=== PATIENT | female | born 1930 | race Caucasian/White ===

== ENCOUNTER 2016-05-02 17:45 | Emergency (ER) | payer MEDICARE, MEDICAID ==
[2016-05-02 17:57] VITALS: TEMP 98.1; O2SAT 99
--- NOTE | 2016-05-02 18:45 | CT ---
NAME: ROBERTO CARLOS DE LEÓNPROCEDURE: CT HEAD WITHOUT IV CONTRASTORDER DATE: 05/02/2016 6:02 PM CSTACCESSION NUMBER: [id number] CLINICAL HISTORY: fall INDICATION: Same as above Comparison: 12/26/2014 TECHNIQUE: CT of the head was done without intravenous contrast was done in the orthogonal planes. Total DLP: 773.97 mGy*cm. FINDINGS: There is no intracranial hemorrhage, midline shift mass effect or acute focal infarct. There is prominence of the sylvian fissures and the cortical sulci reflecting age related volume loss. There is periventricular and deep white matter low attenuation, most likely related to small vessel white matter ischemic disease. 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 If clinical concern exists regarding an acute ischemic/vascular pathology being responsible for patient's symptomatology, an MRI of the brain is more sensitive than the current study, in ruling out such a possibility. There is good [place]/white matter differentiation. The ventricular system is normal. The mastoid air cells are unremarkable . The paranasal sinuses are unremarkable . There is no visualization of acute fractures involving the calvarium or the skull base. IMPRESSION: There is no acute intracranial abnormality. Age related and chronic involutional changes are seen. Place of interpretation: [facility]. Electronically signed by: Matt Bryant MD 05/02/2016 6:44 PM DE ICER INSTALLER
--- NOTE | 2016-05-02 18:48 | RAD ---
NAME: ROBERTO CARLOS DE LEÓNPROCEDURE: XR SHOULDER 2 OR MORE VIEWSORDER DATE: 05/02/2016 6:02 PM CSTACCESSION NUMBER: [id number] Clinical History: fall Indication: Status post fall and left shoulder pain Comparison: None . Technique: 2.0 views of the left shoulder were done. Findings: There is no visualization of acute fractures or dislocations involving the bones of the left shoulder joint. Superior subluxation of the left humeral head is suggestive of chronic rotator cuff tendon tear The adjacent acromioclavicular joint shows mild degenerative change. There is no evidence of rotator cuff calcific tendinitis. The visualized adjacent ribs do not show any evidence of acute bony trauma. Limited evaluation of the adjacent clavicle, scapula and the acromioclavicular joint does not show any evidence of acute bony trauma. The visualized lung christopher are radiographically unremarkable. The adjacent soft tissues are radiographically unremarkable. There is no visualization of any radiopaque foreign bodies in the soft tissues. Impression: Negative for acute bony trauma involving the left shoulder joint . Place of interpretation: [id number]. Electronically signed by: Matt Bryant MD 05/02/2016 6:46 PM SYSTEM CONTROLLER
--- NOTE | 2016-05-02 18:51 | RAD ---
EXAM DESCRIPTION: Lumbar Spine 3 Views CLINICAL HISTORY: s/p fall, hit head, pain and small swelling to left ear, also c/o pain to upper back, lower back ,and left shoulder. COMPARISON: None. FINDINGS: AP and lateral view of the lumbar spine, and coned view of the lumbosacral junction were submitted. There is scoliosis and degenerative changes of the lumbar spine. There is atherosclerosis. Decreased bone mineralization compatible with osteopenia. There is anterior spondylosis mainly at L3/L4. Calcifications within the pelvis compatible with phleboliths. There are five true lumbar vertebral bodies. The pedicles are within normal limits. There is no acute fracture or spondylolisthesis. IMPRESSION: No acute abnormalities. Scoliosis and degenerative changes of the lumbar spine. Electronically signed by: Michael Hartman MD 05/02/2016 6:50 PM POWER DISTRIBUTION ENGINEER
--- NOTE | 2016-05-02 18:53 | RAD ---
EXAM DESCRIPTION: Thoracic Spine,AP Lateral CLINICAL HISTORY: s/p fall, hit head, pain and small swelling to left ear, also c/o pain to upper back, lower back ,and left shoulder. COMPARISON: Chest radiograph July 30, 2015 FINDINGS: AP, lateral views of the thoracic spine and swimmer's view were submitted. The pedicles are within normal limits. Vertebral body height is preserved. There is no discrete acute fracture. There is atherosclerosis. Cardiac silhouette is enlarged which could be secondary to cardiomegaly. There is loss of the normal vertebral body height of the T9 and T10 vertebral bodies compatible with compression fractures. This is unchanged compared with the prior chest radiograph dated July 30, 2015 IMPRESSION: Stable examination. No acute abnormalities. Electronically signed by: Michael Hartman MD 05/02/2016 6:52 PM FILAMENT WOUND PARTS FABRICATOR
--- NOTE | 2016-05-02 18:58 | ED.PDOC ---
History of Present Illness - General Chief Complaint: Trauma Stated Complaint: fall Time Seen by Provider: 05/02/16 17:57 Source: patient Exam Limitations: no limitations - History of Present Illness Initial Comments: the patient is an 86-year-old female who [facility] a [facility]. She was getting up to go to the bathroom when she tripped and fell backwards and landed on the floor. She landed primarily on her left side. She has some mild low back pain. She has some mild left posterior shoulder pain. She has some mild thoracic spine pain. No new deformity is noted that she does have significant scoliosis changes. No lacerations. She also has a small hematoma to her posterior occiput. No laceration. No altered mental status. The patient did not lose consciousness. The patient was able to give us her account of the event. She has had multiple falls recently due to progressive weakness due to illnesses. She is supposed to be using a walker and wheelchair to get around. It does not appear that she did at this time. Timing/Duration: momentarily Severity: moderate Improving Factors: immobilization Worsening Factors: movement Associated Symptoms: denies symptoms Allergies/Adverse Reactions: Allergies Codeine Allergy (Verified 02/26/16 06:08) NSAIDs Allergy (Verified 02/26/16 06:08) Penicillin G Allergy (Verified 02/26/16 06:08) Propoxyphene [From Darvon] Allergy (Verified 02/26/16 06:08) Sulfa Drugs Allergy (Verified 02/26/16 06:08) Valsartan [From Diovan] Allergy (Verified 02/26/16 06:08) Home Medications: Ambulatory Orders Calcium Carbonate 260 mg PO DAILY 02/17/15 Citalopram Hydrobromide 20 mg PO DAILY 02/17/15 Furosemide [Lasix] 40 mg PO BID 02/17/15 Gabapentin 300 mg PO TID 02/17/15 Magnesium Oxide 400 mg PO BID 02/17/15 Metoprolol Succinate [Toprol Xl] 50 mg PO DAILY 02/17/15 [place] 3 Fatty Acids-[place] 6 FA [[place]-3 & [place]-6 Fish Oi] 1,000 mg PO DAILY Omeprazole 40 mg PO BID 02/17/15 Oxybutynin Chloride 5 mg PO BEDTIME 02/17/15 Zolpidem Tartrate [Ambien] 5 mg PO BEDTIME 02/17/15 fentaNYL PATCH 25 MCG/HR [Duragesic Patch 25 MCG/HR] 25 mcg TOP Q72H 02/17/15 HYDROcodone 7.5MG/APAP 325MG [[place] 7.5/325] 1 ea PO .Q4H PRN 07/29/15 Insulin NPH Isophane & Reg (Hu [Humulin 70/30 (70-30) 100 Unit/ml] 10 units SC .MORNING 07/29/15 Insulin Regular (Human) [Novolin R] 0 unit IJ DAILY PRN 07/29/15 Benzonatate Perles [Tessalon Perles] 100 mg PO TID #28 cap 07/30/15 Guaifenesin [Mucinex] 600 mg PO BID #14 tab 07/30/15 Sucralfate Tab [Carafate Tab] 1 gm PO QID #120 tab 02/26/16 Review of Systems - Review of Systems Constitutional: States: malaise EENTM: States: no symptoms reported Respiratory: States: no symptoms reported Cardiology: States: no symptoms reported Gastrointestinal/Abdominal: States: no symptoms reported Genitourinary: States: no symptoms reported Musculoskeletal: States: see HPI Skin: States: see HPI Neurological: States: weakness - generalized but not new she does have poor balance and this is not new either All other Systems: No Change from Baseline Past Medical History (General) - Patient Medical History Hx Seizures: No Hx Stroke: No Hx Dementia: No Hx Asthma: No Hx of COPD: No Hx Cardiac Disorders: No Hx Congestive Heart Failure: No Hx Pacemaker: No Hx Hypertension: Yes Hx Thyroid Disease: No Hx Diabetes: Yes Hx Gastroesophageal Reflux: Yes Hx Renal Disease: No Hx Cancer: No Hx of HIV: No Hx Hepatitis C: No Hx MRSA: No MRSA Source:: Wound Surgical History: appendectomy, cholecystectomy - Vaccination History Hx Tetanus, Diphtheria Vaccination: - unknown Hx Influenza Vaccination: Yes Hx Pneumococcal Vaccination: Yes - Social History Hx Tobacco Use: No Hx Chewing Tobacco Use: No Hx Alcohol Use: No Hx Substance Use: No Hx Substance Use Treatment: No Hx Depression: No Hx Physical Abuse: No Hx Emotional Abuse: No Hx Suspected Abuse: No - Activities of Daily Living Care Home/Assisted Living (if applicable):: [facility] - Female History Patient : No Family Medical History - Family History Mother Family History: Unknown Living Status: Hx Family Cancer: Yes - Liver Physical Exam - Physical Exam General Appearance: Alert, Comfortable, No apparent distress Eye Exam: bilateral normal Ears, Nose, Throat: hearing grossly normal, normal ENT inspection, normal pharynx Neck: non-tender, full range of motion, supple, normal inspection Respiratory: chest non-tender, lungs clear, normal breath sounds, no respiratory distress, no accessory muscle use Cardiovascular/Chest: normal peripheral pulses, regular rate, rhythm, no edema Peripheral Pulses: radial,right: 2+, femoral,right: 2+, dorsalis pedis,right: 2+ , dorsalis pedis,left: 2+ Gastrointestinal/Abdominal: normal bowel sounds, non tender, soft Rectal Exam: deferred Back Exam: other - see history of present illness. Extremity: normal range of motion - for her, non-tender, normal inspection - with the exception of chronic changes, no pedal edema, normal capillary refill Neurologic: alert, normal mood/affect, oriented x 3 Skin Exam: normal color Comments: Vital Signs - 24 hr 05/02/16 17:53 Temperature 98.1 F Pulse Rate [ 59 L Left Brachial] Respiratory 20 Rate Blood Pressure 124/64 [Left Arm] O2 Sat by Pulse 99 Oximetry Progress - Progress Progress: 05/02/16 18:59 the patient is an 86-year-old female presenting to the emergency room secondary to a fall [facility]. she has a small contusion to the posterior occiput. She needs to be sure to use her walker or wheelchair to get around prevent further falls. Head CT, x-rays of the lumbar spine and thoracic spine as well as x-rays of the left shoulder show no evidence of fracture or hemorrhage. The patient will likely be sore from the fall for a couple of weeks. Recommend she start working with physical therapy if not doing so already to improve her gait and strength. Fall precautions should be taken. She is to return to the emergency room for any acute worsening. Resume medications at the [facility] otherwise. Departure - Departure Clinical Impression: Contusion of scalp Qualifiers: Encounter type: initial encounter Qualifier Code: (S00.03XA) Contusion of scalp , initial encounter Fall at [facility] Qualifiers: Encounter type: initial encounter Qualifier Code: (W19.XXXA) Unspecified fall, initial encounter Disposition: Discharge to Home or Self Care Condition: Fair Departure Forms: ED Discharge - Pt. Copy, Patient Portal Self Enrollment Instructions: DI for Contusion Diet: regular diet Activity: increase activity as tolerated Referrals: Agus Calero MD [Primary Care Provider] - 1-2 Weeks Home Medications: Ambulatory Orders Calcium Carbonate 260 mg PO DAILY 02/17/15 Citalopram Hydrobromide 20 mg PO DAILY 02/17/15 Furosemide [Lasix] 40 mg PO BID 02/17/15 Gabapentin 300 mg PO TID 02/17/15 Magnesium Oxide 400 mg PO BID 02/17/15 Metoprolol Succinate [Toprol Xl] 50 mg PO DAILY 02/17/15 [place] 3 Fatty Acids-[place] 6 FA [[place]-3 & [place]-6 Fish Oi] 1,000 mg PO DAILY Omeprazole 40 mg PO BID 02/17/15 Oxybutynin Chloride 5 mg PO BEDTIME 02/17/15 Zolpidem Tartrate [Ambien] 5 mg PO BEDTIME 02/17/15 fentaNYL PATCH 25 MCG/HR [Duragesic Patch 25 MCG/HR] 25 mcg TOP Q72H 02/17/15 HYDROcodone 7.5MG/APAP 325MG [[place] 7.5/325] 1 ea PO .Q4H PRN 07/29/15 Insulin NPH Isophane & Reg (Hu [Humulin 70/30 (70-30) 100 Unit/ml] 10 units SC .MORNING 07/29/15 Insulin Regular (Human) [Novolin R] 0 unit IJ DAILY PRN 07/29/15 Benzonatate Perles [Tessalon Perles] 100 mg PO TID #28 cap 07/30/15 Guaifenesin [Mucinex] 600 mg PO BID #14 tab 07/30/15 Sucralfate Tab [Carafate Tab] 1 gm PO QID #120 tab 02/26/16 Additional Instructions: the patient is an 86-year-old female presenting to the emergency room secondary to a fall at the [facility]. she has a small contusion to the posterior occiput. She needs to be sure to use her walker or wheelchair to get around prevent further falls. Head CT, x-rays of the lumbar spine and thoracic spine as well as x-rays of the left shoulder show no evidence of fracture or hemorrhage. The patient will likely be sore from the fall for a couple of weeks. Recommend she start working with physical therapy if not doing so already to improve her gait and strength. Fall precautions should be taken. She is to return to the emergency room for any acute worsening. Resume medications at the [facility] otherwise.
[2016-05-02 19:24] VITALS: BP 121/71
--- NOTE | 2016-05-28 23:49 | RAD ---
NAME: ROBERTO CARLOS DE LEÓNPROCEDURE: XR SHOULDER 2 OR MORE VIEWSORDER DATE: 05/02/2016 6:02 PM CSTACCESSION NUMBER: [id number] Clinical History: fall Indication: Status post fall and left shoulder pain Comparison: None . Technique: 2.0 views of the left shoulder were done. Findings: There is no visualization of acute fractures or dislocations involving the bones of the left shoulder joint. Superior subluxation of the left humeral head is suggestive of chronic rotator cuff tendon tear The adjacent acromioclavicular joint shows mild degenerative change. There is no evidence of rotator cuff calcific tendinitis. The visualized adjacent ribs do not show any evidence of acute bony trauma. Limited evaluation of the adjacent clavicle, scapula and the acromioclavicular joint does not show any evidence of acute bony trauma. The visualized lung christopher are radiographically unremarkable. The adjacent soft tissues are radiographically unremarkable. There is no visualization of any radiopaque foreign bodies in the soft tissues. Impression: Negative for acute bony trauma involving the left shoulder joint . Place of interpretation: [id number]. Electronically signed by: Matt Bryant MD 05/02/2016 6:46 PM FISHER TROT LINE
--- NOTE | 2016-05-28 23:49 | CT ---
NAME: ROBERTO CARLOS DE LEÓNPROCEDURE: CT HEAD WITHOUT IV CONTRASTORDER DATE: 05/02/2016 6:02 PM CSTACCESSION NUMBER: [id number] CLINICAL HISTORY: fall INDICATION: Same as above Comparison: 12/26/2014 TECHNIQUE: CT of the head was done without intravenous contrast was done in the orthogonal planes. Total DLP: 773.97 mGy*cm. FINDINGS: There is no intracranial hemorrhage, midline shift mass effect or acute focal infarct. There is prominence of the sylvian fissures and the cortical sulci reflecting age related volume loss. There is periventricular and deep white matter low attenuation, most likely related to small vessel white matter ischemic disease. 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 If clinical concern exists regarding an acute ischemic/vascular pathology being responsible for patient's symptomatology, an MRI of the brain is more sensitive than the current study, in ruling out such a possibility. There is good del valle/white matter differentiation. The ventricular system is normal. The mastoid air cells are unremarkable . The paranasal sinuses are unremarkable . There is no visualization of acute fractures involving the calvarium or the skull base. IMPRESSION: There is no acute intracranial abnormality. Age related and chronic involutional changes are seen. Place of interpretation: Teleradiology. Electronically signed by: Matt Bryant MD 05/02/2016 6:44 PM CHANNELER
--- NOTE | 2016-05-29 06:21 | CT ---
NAME: ROBERTO CARLOS DE LEÓNPROCEDURE: CT HEAD WITHOUT IV CONTRASTORDER DATE: 05/02/2016 6:02 PM CSTACCESSION NUMBER: [id number] CLINICAL HISTORY: fall INDICATION: Same as above Comparison: 12/26/2014 TECHNIQUE: CT of the head was done without intravenous contrast was done in the orthogonal planes. Total DLP: 773.97 mGy*cm. FINDINGS: There is no intracranial hemorrhage, midline shift mass effect or acute focal infarct. There is prominence of the sylvian fissures and the cortical sulci reflecting age related volume loss. There is periventricular and deep white matter low attenuation, most likely related to small vessel white matter ischemic disease. 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 If clinical concern exists regarding an acute ischemic/vascular pathology being responsible for patient's symptomatology, an MRI of the brain is more sensitive than the current study, in ruling out such a possibility. There is good del valle/white matter differentiation. The ventricular system is normal. The mastoid air cells are unremarkable . The paranasal sinuses are unremarkable . There is no visualization of acute fractures involving the calvarium or the skull base. IMPRESSION: There is no acute intracranial abnormality. Age related and chronic involutional changes are seen. Place of interpretation: [facility]. Electronically signed by: Matt Bryant MD 05/02/2016 6:44 PM STOCK DEALER
== END 2016-05-02 19:58 | disposition home or self-care (01) ==
LOC: ER 17:45
DX: S00.03XA Contusion of scalp, initial encounter (principal); I10 Essential (primary) hypertension; E11.9 Type 2 diabetes mellitus without complications; K21.9 Gastro-esophageal reflux disease without esophagitis; Z88.6 Allergy status to analgesic agent; Z88.0 Allergy status to penicillin; Z79.899 Other long term (current) drug therapy; Z79.4 Long term (current) use of insulin; W01.0XXA Fall on same level from slipping, tripping and stumbling without subsequent striking against object, initial encounter; Z91.81 History of falling; Y92.129 Unspecified place in nursing home as the place of occurrence of the external cause

== ENCOUNTER 2016-05-03 10:36 | Observation (INO) | payer MEDICARE, MEDICAID ==
[2016-05-03] MEDS ORDERED: SODIUM CHLORIDE 0.9% (FLUSH) 10 ML SYG IV PRN ×2 (11:18→18:26)
--- NOTE | 2016-05-03 11:40 | ED.PDOC ---
History of Present Illness - General Chief Complaint: Neuro Symptoms/Deficits Stated Complaint: R LEG PAIN Time Seen by Provider: 05/03/16 11:00 Source: patient, [facility] records Exam Limitations: clinical condition Additional Information: PT WAS SEEN IN THE ED LAST NIGHT AFTER A FALL. PT HAD CT HEAD, XRAY THORACIC/ LUMBAR SPINE, AND SHOULDER. PT WAS FOUND BY LONGTERM STAFF TO BE ALTERED THIS MORNING. PT HAD TAKEN OFF HER OXYGEN WHICH SHE WEARS 23/10 AND WAS NOT FOLLOWING COMMANDS AND NOT ABLE TO FEED HERSELF BREAKFAST SHE NORMALLY DOES. PTS O2 SAT WAS FOUND TO BE 84%. PT WAS PLACED BACK ON OXYGEN AND O2 SAT INCREASED TO 94%. WHEN ASKED WHY SHE IS HERE, PT RESPONDS BY SAYING SHE FELL AND COMPLAINS OF RIGHT LEG PAIN. - History of Present Illness Timing/Duration: 4-6 hours Severity: moderate Allergies/Adverse Reactions: Allergies Codeine Allergy (Verified 02/26/16 06:08) NSAIDs Allergy (Verified 02/26/16 06:08) Penicillin G Allergy (Verified 02/26/16 06:08) Propoxyphene [From Darvon] Allergy (Verified 02/26/16 06:08) Sulfa Drugs Allergy (Verified 02/26/16 06:08) Valsartan [From Diovan] Allergy (Verified 02/26/16 06:08) Home Medications: Ambulatory Orders Calcium Carbonate 260 mg PO DAILY 02/17/15 Citalopram Hydrobromide 20 mg PO DAILY 02/17/15 Furosemide [Lasix] 40 mg PO BID 02/17/15 Gabapentin 300 mg PO TID 02/17/15 Magnesium Oxide 400 mg PO BID 02/17/15 Metoprolol Succinate [Toprol Xl] 50 mg PO DAILY 02/17/15 [place] 3 Fatty Acids-[place] 6 FA [[place]-3 & [place]-6 Fish Oi] 1,000 mg PO DAILY Omeprazole 40 mg PO BID 02/17/15 Oxybutynin Chloride 5 mg PO BEDTIME 02/17/15 Zolpidem Tartrate [Ambien] 5 mg PO BEDTIME 02/17/15 fentaNYL PATCH 25 MCG/HR [Duragesic Patch 25 MCG/HR] 25 mcg TOP Q72H 02/17/15 HYDROcodone 7.5MG/APAP 325MG [[place] 7.5/325] 1 ea PO Q6H PRN 07/29/15 Insulin NPH Isophane & Reg (Hu [Humulin 70/30 (70-30) 100 Unit/ml] 10 units SC .MORNING 07/29/15 Insulin Regular (Human) [Novolin R] 0 unit IJ DAILY PRN 07/29/15 Guaifenesin [Mucinex] 600 mg PO BID #14 tab 07/30/15 Sucralfate Tab [Carafate Tab] 1 gm PO QID #120 tab 02/26/16 Acetaminophen [Tylenol] 500 mg PO BID PRN 05/03/16 Benzonatate Perles [Tessalon Perles] 100 mg PO TID PRN 05/03/16 Docusate Sodium 200 mg PO QID PRN 05/03/16 Duloxetine HCl [Cymbalta] 60 mg PO BEDTIME 05/03/16 HYDROcodone 10MG/APAP 325MG [[place] 10/325] 1 tab PO Q4H 05/03/16 Ondansetron Tab [Zofran Tab] 4 mg PO Q4H PRN 05/03/16 Review of Systems - Review of Systems Constitutional: Denies: chills, fever EENTM: Denies: nose congestion, throat pain Respiratory: Denies: cough, short of breath Cardiology: Denies: chest pain, palpitations Gastrointestinal/Abdominal: Denies: diarrhea, vomiting Genitourinary: Denies: dysuria Musculoskeletal: States: see HPI, joint pain, muscle pain - RLE PAIN Skin: Denies: change in color, lesions Neurological: Denies: tremors, weakness Past Medical History (General) - Patient Medical History Hx Seizures: No Hx Stroke: No Hx Dementia: No Hx Asthma: No Hx of COPD: No Hx Cardiac Disorders: No Hx Congestive Heart Failure: No Hx Pacemaker: No Hx Hypertension: Yes Hx Thyroid Disease: No Hx Diabetes: Yes Hx Gastroesophageal Reflux: Yes Hx Renal Disease: No Hx Cancer: No Hx of HIV: No Hx Hepatitis C: No Hx MRSA: No MRSA Source:: Wound - Vaccination History Hx Tetanus, Diphtheria Vaccination: - unknown Hx Influenza Vaccination: Yes Hx Pneumococcal Vaccination: Yes - Social History Hx Tobacco Use: No Hx Chewing Tobacco Use: No Hx Alcohol Use: No Hx Substance Use: No Hx Substance Use Treatment: No Hx Depression: No Hx Physical Abuse: No Hx Emotional Abuse: No Hx Suspected Abuse: No - Activities of Daily Living Alf/Assisted Living (if applicable):: [facility] - Female History Patient : No Family Medical History - Family History Mother Family History: Unknown Living Status: Hx Family Cancer: Yes - Liver Physical Exam - Physical Exam General Appearance: Alert, Comfortable, No apparent distress Eye Exam: bilateral normal Ears, Nose, Throat: hearing grossly normal, normal ENT inspection Neck: non-tender, full range of motion Respiratory: chest non-tender, lungs clear, normal breath sounds Cardiovascular/Chest: regular rate, rhythm, no murmur Gastrointestinal/Abdominal: non tender, soft Extremity: other - TENDERNESS ALONG THE MEDIAL RIGHT THIGH AND KNEE Neurologic: normal mood/affect - ANSWERS QUESTIONS APPROPRIATELY, ABLE TO FOLLOW COMMANDS, NO SLURRED SPEECH OR FACIAL DROOP NOTED Skin Exam: normal color, warm/dry Progress - Progress Progress: 05/03/16 14:00 PT CONTINUES TO REST COMFORTABLY WHILE IN THE ED. LABS SHOW SLIGHT INCREASE IN RENAL INSUFFICIENCY. WILL ORDER IV FLUIDS FOR POSSIBLE DEHYDRATION. FEMUR XRAY SHOWS B/L PUBIC RAMI FXS, WILL ORDER CT PELVIS FOR FURTHER EVAL. 05/03/16 14:[address] WITH NO ACUTE INJURY. WILL REFER TO HOSPITALIS FOR OBSERVATION, CONTINUED IV HYDRATION. - Results/Orders Results/Orders: 05/03/16 11:18 Sodium Chloride 0.9% (Flush) [Saline Flush Syringe] 10 ml IV PRN PRN 05/03/16 11:19 IV Care:Saline Lock per Protoc QSHIFT Telemetry .ONCE 05/03/16 11:30 EKG STAT Laboratory Results WBC 6.3 K/mm3 (4.8-10.8) 05/03/16 11:40 RBC 4.26 M/mm3 (4.20-5.40) 05/03/16 11:40 Hgb 9.9 gm/dL (12.0-16.0) L 05/03/16 11:40 Hct 32.1 % (36.0-47.0) L 05/03/16 11:40 MCV 75.5 fl (81.0-99.0) L 05/03/16 11:40 MCH 23.2 pg (27.0-31.0) L 05/03/16 11:40 MCHC 30.7 g/dL (33.0-37.0) L 05/03/16 11:40 RDW 18.2 % (11.5-14.5) H 05/03/16 11:40 Plt Count 258 K/mm3 (130-400) 05/03/16 11:40 MPV 8.1 fl (7.40-10.4) 05/03/16 11:40 Absolute Neuts (auto) 4.40 K/uL (1.8-6.8) 05/03/16 11:40 Absolute Lymphs (auto) 1.10 K/uL (1.0-3.4) 05/03/16 11:40 Absolute Monos (auto) 0.50 K/uL (0.2-0.8) 05/03/16 11:40 Absolute Eos (auto) 0.20 K/uL (0.0-0.4) 05/03/16 11:40 Absolute Basos (auto) 0.00 K/uL (0.0-0.1) 05/03/16 11:40 Neutrophils % 69.8 % (42.0-78.0) 05/03/16 11:40 Lymphocytes % 17.8 % (20.0-50.0) L 05/03/16 11:40 Monocytes % 7.7 % (2.0-9.0) 05/03/16 11:40 Eosinophils % 3.9 % (1.0-5.0) 05/03/16 11:40 Basophils % 0.8 % (0.0-2.0) 05/03/16 11:40 PT 12.0 SECONDS (9.4-12.5) 05/03/16 11:40 INR 1.060 05/03/16 11:40 PTT (SP) 34.5 SECONDS (25.1-36.5) 05/03/16 11:40 Sodium 135 mmol/L (135-145) 05/03/16 11:40 Potassium 4.7 mmol/L (3.6-5.0) 05/03/16 11:40 Chloride 99 mmol/L (101-111) L 05/03/16 11:40 Carbon Dioxide 33 mmol/L (21-31) H 05/03/16 11:40 Anion Gap 7.7 (12-18) L 05/03/16 11:40 BUN 71 mg/dL (7-18) H 05/03/16 11:40 Creatinine 2.10 mg/dL (0.6-1.3) H 05/03/16 11:40 BUN/Creatinine Ratio 33.8 (10-20) H 05/03/16 11:40 POC Glucose 97 mg/dL (70-105) 05/03/16 11:40 Random Glucose 88 mg/dL (70-105) 05/03/16 11:40 Serum Osmolality 290.3 mOsm/L (275-295) 05/03/16 11:40 Calcium 9.4 mg/dL (8.4-10.2) 05/03/16 11:40 Total Bilirubin 0.4 mg/dL (0.2-1.0) 05/03/16 11:40 AST 11 IU/L (10-42) 05/03/16 11:40 ALT 10 IU/L (10-60) 05/03/16 11:40 Alkaline Phosphatase 59 IU/L (42-121) 05/03/16 11:40 Creatine Kinase 77 IU/L (26-140) 05/03/16 11:40 CK-MB (CK-2) 2.4 ng/mL (0.0-4.4) 05/03/16 11:40 CK-MB (CK-2) % Not Reportable 05/03/16 11:40 Troponin I 0.02 ng/mL (0.01-0.05) 05/03/16 11:40 Serum Total Protein 7.4 gm/dL (6.4-8.2) 05/03/16 11:40 Albumin 3.4 g/dl (3.2-5.5) 05/03/16 11:40 Globulin 4.0 gm/dL (2.3-3.5) H 05/03/16 11:40 Albumin/Globulin Ratio 0.9 (1.1-1.9) L 05/03/16 11:40 Urine Color Yellow (Yellow) 05/03/16 11:42 Urine Appearance Clear (Clear) 05/03/16 11:42 Urine pH 5.0 (4.5-7.8) 05/03/16 11:42 Ur Specific [place] 1.010 (1.005-1.030) 05/03/16 11:42 Urine Protein Trace mg/dL 05/03/16 11:42 Urine Glucose (UA) Negative mg/dL (Negative) 05/03/16 11:42 Urine Ketones Negative mg/dL (NEGATIVE) 05/03/16 11:42 Urine Blood Negative (Negative) 05/03/16 11:42 Urine Nitrite Negative 05/03/16 11:42 Urine Bilirubin Negative (NEGATIVE) 05/03/16 11:42 Urine Urobilinogen 0.2 mg/dL (0.2-1.0) 05/03/16 11:42 Ur Leukocyte Esterase Negative (Negative) 05/03/16 11:42 Urine RBC 0 /hpf 05/03/16 11:42 Urine WBC 1-3 /hpf 05/03/16 11:42 Ur Epithelial Cells 3-5 /hpf 05/03/16 11:42 Ur Squamous Epith Cells 1-3 /hpf 05/03/16 11:42 Ur Renal Epithelial Cell 0-1 /hpf 05/03/16 11:42 Urine Bacteria 0 05/03/16 11:42 Hyaline Casts 0-1 /lpf 05/03/16 11:42 - EKG/XRAY/CT EKG: Sinus - @69BPM, NL INTERVALS, LAD, Unchanged from - 02/26/16 Departure - Departure Clinical Impression: Renal failure, Acute confusional state, Dehydration Time of Disposition: 15:15 - CASE DISCUSSED WITH DR. ARANGO WHO AGREES TO ADMIT Disposition: Admit Patient Condition: Fair Departure Forms: ED Discharge - Pt. Copy, Patient Portal Self Enrollment Diet: resume usual diet Referrals: Agus Calero MD [Primary Care Provider] - 1-2 Weeks Home Medications: Ambulatory Orders Calcium Carbonate 260 mg PO DAILY 02/17/15 Citalopram Hydrobromide 20 mg PO DAILY 02/17/15 Furosemide [Lasix] 40 mg PO BID 02/17/15 Gabapentin 300 mg PO TID 02/17/15 Magnesium Oxide 400 mg PO BID 02/17/15 Metoprolol Succinate [Toprol Xl] 50 mg PO DAILY 02/17/15 [place] 3 Fatty Acids-[place] 6 FA [[place]-3 & [place]-6 Fish Oi] 1,000 mg PO DAILY Omeprazole 40 mg PO BID 02/17/15 Oxybutynin Chloride 5 mg PO BEDTIME 02/17/15 Zolpidem Tartrate [Ambien] 5 mg PO BEDTIME 02/17/15 fentaNYL PATCH 25 MCG/HR [Duragesic Patch 25 MCG/HR] 25 mcg TOP Q72H 02/17/15 HYDROcodone 7.5MG/APAP 325MG [[place] 7.5/325] 1 ea PO Q6H PRN 07/29/15 Insulin NPH Isophane & Reg (Hu [Humulin 70/30 (70-30) 100 Unit/ml] 10 units SC .MORNING 07/29/15 Insulin Regular (Human) [Novolin R] 0 unit IJ DAILY PRN 07/29/15 Guaifenesin [Mucinex] 600 mg PO BID #14 tab 07/30/15 Sucralfate Tab [Carafate Tab] 1 gm PO QID #120 tab 02/26/16 Acetaminophen [Tylenol] 500 mg PO BID PRN 05/03/16 Benzonatate Perles [Tessalon Perles] 100 mg PO TID PRN 05/03/16 Docusate Sodium 200 mg PO QID PRN 05/03/16 Duloxetine HCl [Cymbalta] 60 mg PO BEDTIME 05/03/16 HYDROcodone 10MG/APAP 325MG [[place] 10/325] 1 tab PO Q4H 05/03/16 Ondansetron Tab [Zofran Tab] 4 mg PO Q4H PRN 05/03/16 Decision To Admit - Decistion To Admit Decision to Admit Reason: Admit from ER Decision to Admit Date: 05/03/16 Decision to Admit Time: 15:21
[2016-05-03] MEDS ORDERED: SODIUM CHLORIDE 0.9% 1000ML 1,000 ML IVS ONE (12:36)
--- NOTE | 2016-05-03 12:41 | RAD ---
Study: Single Frontal View of the Chest. Indication:ams Comparison: February 26, 2016. Impression: Cardiomegaly without failure. Tortuosity and atherosclerosis aorta. Prominence of the right peritracheal stripe noted and may relate to underlying vasculature. Underlying lymphadenopathy not excluded. Contrast-enhanced CT chest could better evaluate. Emphysema period no consolidation, pleural effusion or pneumothorax. Pronounced degenerative changes shoulders. Osteopenia. If this is a new finding, DEXA scan recommended as well as evaluation for possible osteoporosis treatment. Electronically signed by: David Calles MD 05/03/2016 12:40
--- NOTE | 2016-05-03 12:55 | RAD ---
Four view right femur. Indication: right leg pain s/p fall Comparison: None Impression: The bones are markedly osteopenic. Give this limitation, no acute fracture of the right femur identified. There does however appear to be fractures of the bilateral obturator rings with questionable widening of the pubic symphysis. Correlation with MRI recommended given the degree of osteopenia. Moderate right hip osteoarthritis. Moderate to severe medial and lateral compartment knee osteoarthritis with chondrocalcinosis of the menisci. 9 mm ossification noted within the soft tissues lateral to the right greater trochanter. Electronically signed by: David Calles MD 05/03/2016 12:53
--- NOTE | 2016-05-03 13:58 | CT ---
EXAM DESCRIPTION: CT PELVIS WITHOUT IV CONTRAST CLINICAL HISTORY: 86 y/o F, PELVIC FX SP FALL COMPARISON: May 09, 2015 TECHNIQUE: Pelvic CT was performed without IV contrast FINDINGS: Again seen are multiple old slightly displaced pelvic fractures, some united and some nonunited. These all appear stable from May,. No acute pelvic fracture is identified period there is slightly widened appearance of the right sacroiliac joint which is also stable from May, and likely related to remote trauma. Degenerative changes are noted in the left sacroiliac joint period there are advanced degenerative changes at multiple levels in lumbar spine including convex rightward scoliosis only partially visualized. Mural calcifications are noted in the abdominal aorta period there is a large amount of stool and gas in the colon. No bladder wall thickening. The uterus and ovaries are not seen, please correlate with surgical history. IMPRESSION: Multiple old healed and nonunited pelvic fractures all stable from May,, but no acute pelvic abnormality. Electronically signed by: Rosas Johns DO 05/03/2016 13:56
--- NOTE | 2016-05-03 15:25 | HP ---
HISTORY OF PRESENT ILLNESS: This 86 year-old white female who is a resident of [facility] was sent by the long term to the Emergency Room because of an altered level of consciousness. She required feeding and was not her usual self. She has fallen recently and was in the Emergency Room last evening with CT scans and x-rays which failed to show any fractured bones. Her altered level of consciousness today though brought her to the Emergency Room again and she was again found to have some old fractures of her pelvis which have shown healing. Discussion with the daughter describes Cymbalta being given for the last week and she was seemingly a little more alert for 1 or 2 days, but subsequently has been a little more lethargic and may be contributing to some of her altered level of consciousness. She has been falling repetitively and is becoming a danger with very soft bones. She is a diabetic and has been in [facility] for the last year because of her significant disability. PAST MEDICAL HISTORY: 1. Diabetes mellitus type 2 with insulin supplementation. 2. Chronic dementia. 3. Hypertension. 4. Depression. 5. Gastroesophageal reflux disease with esophagitis. 6. Chronic kidney disease stage III. PAST SURGICAL HISTORY: 1. Hysterectomy. 2. Appendectomy. 3. Tonsillectomy. CURRENT MEDICATIONS: Please refer to nurses' notes for a list of verified medications. ALLERGIES: CODEINE, NSAIDs, PENICILLIN, PROPOXYPHENE, SULFA DRUGS AND VALSARTAN. CODE STATUS: FULL CODE. SOCIAL HISTORY: She lives at [facility], is a . She has 4 children with her daughter here presently to contribute significantly to the history. No previous history of alcohol or tobacco use. REVIEW OF SYSTEMS: Difficult to obtain because of the patient's inability to fully cooperate and being somewhat sleepy at the time of examination. PHYSICAL EXAMINATION: VITAL SIGNS: Afebrile, pulse 60, blood pressure 162/72, pulse oximetry 95% on 2 liters, weight 60.4 kilos. GENERAL: When the patient was aroused, the patient was able to communicate fairly well, but refers most questioning to the daughter who is able to answer. The patient has not been eating well and has required feeding today. In the Emergency Room, she was found to have worsening renal failure which will need to be approached overnight with some gentle hydration. HEENT: The patient is generally edentulous. Hearing and vision seems to be decreasing in recent months. CHEST: Occasional cough and some rhonchi upon inspiratory efforts. CARDIOVASCULAR: Heart tones are somewhat distant though regular. ABDOMEN: Soft with no organomegaly, masses or tenderness. NEUROLOGIC: No focal neurological deficits, though the patient keeps her legs fairly well contracted. Somewhat confused at times but able to answer many questions. LABORATORY: White count 6,300, hemoglobin 9.9 with a microcytic hypochromic presentation. INR of 1.06. Chemistries show potassium 4.7, CO2 elevated at 33 , BUN elevated at 71, creatinine 2.1, glucose 88, calcium 9.4. Liver enzymes normal. Troponin 0.02. Albumin 3.4. Urinalysis generally clean. No cultures obtained. X-RAY: X-rays of the pelvis reveal old pelvic fractures healed. No fracture of the femur noted. Chest x-ray today shows cardiomegaly without significant failure with prominence of the peritracheal region, chronic obstructive pulmonary disease with no infiltrates or consolidation and degenerative changes of the joints with marked osteopenia. ASSESSMENT: 1. Altered level of consciousness possibly related to dehydration versus underlying infection versus medication effect versus exacerbation and slight worsening of underlying dementia state. 2. Moderate hypoxia with saturation in the 80s requiring oxygen supplementation to be observed. 3. Chronic dementia with acute exacerbation. 4. History of falls probably as a result of the worsening dementia state. 5. Chronic renal insufficiency with acute exacerbation requiring fluid hydration for possible prerenal azotemia in an effort to try to prevent it from worsening. Reevaluate in the morning. 6. Moderate dehydration. 7. Chronic diabetes mellitus type 2 on insulin supplementation. 8. Chronic scoliosis with pain in the back. 9. Chronic hypertension. 10. Chronic osteoporosis. 11. History of anemia microcytic hypochromic in presentation. PLAN: The patient will be observed overnight with some gentle hydration. Reevaluate in the morning. If stable, will consider continued outpatient therapy at the long term. Discussed with the family in length and repeat evaluation in the morning. #[id number] PAUL
[2016-05-03] MEDS ORDERED: SODIUM CHLORIDE 0.9% 10 ML VIAL INJ PRN (15:46)
[2016-05-03] MEDS ORDERED: ACETAMINOPHEN 325 MG TAB PO PRN (18:26)
[2016-05-03] MEDS ORDERED: MAGNESIUM HYDROXIDE 30 ML UD PO PRN (18:26)
[2016-05-03] MEDS ORDERED: IV SET AND CAP CHANGE INJ INJ SCH (18:30)
[2016-05-03] MEDS ORDERED: DEXTROSE 50% 25 GM/50 ML SYG IV PRN (18:31)
[2016-05-03] MEDS ORDERED: GLUCAGON INJ 1 MG VIAL SUBCU PRN (18:31)
[2016-05-03] MEDS ORDERED: FENTANYL 25 MCG/HR TOP SCH (18:45)
[2016-05-03] MEDS ORDERED: [UNRECOGNIZED DRUG - OTHER] TOP SCH (18:45)
[2016-05-03] MEDS ORDERED: fentaNYL PATCH 25 MCG/HR 1 EA PATCH TD ONE (19:00)
[2016-05-03] MEDS: HYDROcodone 5MG/APAP 325MG 1 EA TAB PO PRN (19:27)
[2016-05-03] MEDS ORDERED: fentaNYL PATCH 25 MCG/HR 1 EA PATCH ONE (19:48)
[2016-05-03] MEDS: SODIUM CHLORIDE 0.9% 1000ML 1,000 ML IVS PRN (19:49)
[2016-05-03] MEDS: GABAPENTIN 300 MG CAP PO SCH (21:13)
[2016-05-03] MEDS: NYSTATIN POWDER 15GM BTTL TOP SCH (21:14)
[2016-05-03] MEDS: SUCRALFATE 1 GM/10 ML 1 GM UD PO SCH (21:14)
[2016-05-03] MEDS: INSULIN LISPRO 100 UNITS/ML PEN SUBCU SCH (21:14)
[2016-05-04] MEDS: LEVALBUTEROL NEBS 0.63 MG/3 ML VIAL INH SCH ×4 (00:09→16:14)
--- NOTE | 2016-05-04 00:29 | PCM.CORE ---
Physician DVT/VTE - Nurse DVT Assessment & Total Each Risk Factor Represents 3 Points: Age over 75 years Each Risk Factor Represents 1 Point: Medical PT at Bed Rest DVT Assessment Score: 4 - 3-4 High Risk Treatments: Sequential Compression Device Pharmacological: Enoxaparin 40 mg SQ Daily
[2016-05-04] MEDS ORDERED: ENOXAPARIN SODIUM 40 MG/0.4 ML SYG SUBCU SCH ×2 (00:30→08:26)
[2016-05-04] MEDS: HYDROcodone 5MG/APAP 325MG 1 EA TAB PO PRN ×3 (00:59→12:24)
[2016-05-04] MEDS ORDERED: OMEPRAZOLE CAP 20 MG CAP PO SCH (06:30)
[2016-05-04] MEDS: SUCRALFATE 1 GM/10 ML 1 GM UD PO SCH ×3 (06:35→14:44)
[2016-05-04] MEDS: INSULIN LISPRO 100 UNITS/ML PEN SUBCU SCH ×3 (07:09→16:38)
[2016-05-04] MEDS ORDERED: fentaNYL PATCH 25 MCG/HR 1 EA PATCH TOP SCH (07:30)
[2016-05-04] MEDS: GABAPENTIN 300 MG CAP PO SCH (08:39)
[2016-05-04] MEDS: NYSTATIN POWDER 15GM BTTL TOP SCH ×3 (08:53→17:07)
[2016-05-04] MEDS ORDERED: METOPROLOL SUCCINATE XL 25 MG TAB PO SCH (09:00)
[2016-05-04] MEDS ORDERED: METOPROLOL SUCCINATE XL 50 MG TAB PO SCH (09:00)
[2016-05-04] MEDS: SODIUM CHLORIDE 0.9% 1000ML 1,000 ML IVS PRN (09:16)
[2016-05-04 14:17] VITALS: BP 145/54; TEMP 98.7
--- NOTE | 2016-05-04 16:36 | DS ---
DISCHARGE DIAGNOSIS: 1. Altered level of consciousness probably secondary to significant dehydration with no evidence of significant infection noted. 2. Chronic dementia with some varying presentations of exacerbation noted. 3. Moderate hypoxia with saturation in the 80s requiring oxygen supplementation showing improvement. 4. History of falls probably a result of her worsening dementia state. 5. Chronic renal insufficiency with an acute exacerbation requiring fluid hydration for prerenal azotemia showing improvement. 6. Moderate dehydration, improved with supplementation. 7. Chronic diabetes mellitus type 2 on insulin supplementation. 8. Chronic scoliosis with pain in the back. 9. Chronic hypertension. 10. Chronic osteoporosis. 11. History of anemia with microcytic hypochromic presentation. HISTORY OF PRESENT ILLNESS: This 86 year-old white female was admitted to the hospital from the Emergency Room. She is a resident at [facility] and was referred to the Emergency Room because of diminished level of alertness and responsivity to the nursing staff at [facility]. She had fallen recently and was in the Emergency Room on the evening before admission with CT scans of the head and elsewhere with no fractured bones noted. She had increasing confusion and altered level of consciousness earlier today requiring her transfer to the E. R. In the E. R., she was found to have some old fractures of her pelvis with CT scan documenting these otherwise to be stable. It is of note that she was on Cymbalta recently and whether that is contributing it does not indicate, but will be held for a while to see if it will help keep her from becoming lethargic. LABORATORY: White count 6,300, hemoglobin 9.9 with 70% neutrophils. INR of 1. Chemistry shows potassium 4.7, BUN dropped from 71 to 55, creatinine from 2.1 to 1.58. Glucose was 94 fasting. Hemoglobin A1c is 6.6. Liver enzymes normal. Troponin 0.02. Albumin 3.4, TSH normal at 0.9. Urinalysis generally clean. Sputum culture is pending. Chest film was taken and shows cardiomegaly without any significant pulmonary congestion. Pelvic CT does show evidence of previous pelvic and annular ring fractures currently stable. HOSPITAL COURSE: The patient was much improved on the morning of discharge. She had received some fluid overnight and showed some significant improvement in her renal function which may also parallel an improvement in her mental status. She was ready to continue with outpatient management and observation at [facility]. PLAN: The patient is discharged to [facility]. She will continue with her usual diet yet try to avoid spicy food such as chili which tends to burn her esophagus. Increase activity as tolerated. Followup with Dr. Calero in a couple of weeks or with Dr. Acre at the shelter. She is encouraged to drink more fluids up to 2 quarts total per day. FPC to follow her pulse oximetry to prevent hypoxia. Special attention to avoid falls. Diet is to avoid spicy food such as chili. FPC to continue with sliding scale using Novolin R insulin to be checked 4 times a day a.c. and h.s. She is going to continue with the routine shelter orders as well as home medications except may stop the Cymbalta. Return if not improving. #[id number] PAUL
[2016-05-04 17:09] VITALS: O2SAT 99
[2016-05-04] MEDS ORDERED: ENOXAPARIN SODIUM 30 MG/0.3 ML SYG SUBCU SCH (21:00)
[2016-05-06] MEDS ORDERED: fentaNYL PATCH 25 MCG/HR 1 EA PATCH TOP SCH (18:45)
== END 2016-05-04 17:35 ==
LOC: ER 10:36 → MS 15:24 → INTOOBSV 15:24
PROVIDERS: ADMIT Emergency Medicine; ATTEND Emergency Medicine
DX: N17.9 Acute kidney failure, unspecified (principal); E86.0 Dehydration; R09.02 Hypoxemia; M16.11 Unilateral primary osteoarthritis, right hip; M17.11 Unilateral primary osteoarthritis, right knee; M11.261 Other chondrocalcinosis, right knee; M79.604 Pain in right leg; F03.90 Unspecified dementia, unspecified severity, without behavioral disturbance, psychotic disturbance, mood disturbance, and anxiety; E11.22 Type 2 diabetes mellitus with diabetic chronic kidney disease; I12.9 Hypertensive chronic kidney disease with stage 1 through stage 4 chronic kidney disease, or unspecified chronic kidney disease; N18.3 Chronic kidney disease, stage 3 (moderate); M81.0 Age-related osteoporosis without current pathological fracture; M41.9 Scoliosis, unspecified; I51.7 Cardiomegaly; K21.0 Gastro-esophageal reflux disease with esophagitis; F32.9 Major depressive disorder, single episode, unspecified; Z99.81 Dependence on supplemental oxygen; Z79.4 Long term (current) use of insulin; Z79.891 Long term (current) use of opiate analgesic; Z79.899 Other long term (current) drug therapy; Z88.0 Allergy status to penicillin; Z88.2 Allergy status to sulfonamides; Z88.6 Allergy status to analgesic agent; Z88.8 Allergy status to other drugs, medicaments and biological substances; Z91.81 History of falling; Z86.2 Personal history of diseases of the blood and blood-forming organs and certain disorders involving the immune mechanism; Z90.49 Acquired absence of other specified parts of digestive tract; Z90.710 Acquired absence of both cervix and uterus
CPT/HCPCS: 36415 ×3; 36416 ×4; 71010; 72192; 73551; 80048; 80053; 81001; 82550; 82553; 82948 ×6; 83036; 84443; 84484; 85025 ×2; 85610; 85730; 87070; 93005; 94640 ×3; 94760 ×6; 96360; 96372; 99284; G0378; J1650; J1815; J7030 ×3; J7614 ×3

== ENCOUNTER 2016-05-12 05:36 | Emergency (ER) | payer MEDICARE, MEDICAID ==
[2016-05-12] MEDS ORDERED: NITROGLYCERIN 0.4 MG 25 EA TAB SL ONE (05:43)
--- NOTE | 2016-05-12 06:22 | ED.PDOC ---
History of Present Illness - General Source: patient, RN notes reviewed, Vital Signs reviewed, [facility] records Exam Limitations: no limitations - History of Present Illness Initial Comments: This 86 y/o female was awakened from sleep by substernal chest pain, 7/10, pressure. She has mild SOB, no nausea, no diaphoresis, no dizziness. She has a history of HTN, GERD, and DMII. Timing/Duration: 1-3 hours Severity: moderate, severe Improving Factors: nothing Worsening Factors: nothing Associated Symptoms: chest pain, shortness of breath <Susi Alejandro - Last Filed: 05/12/16 06:10> <Amparo Gonzalez - Last Filed: 05/12/16 10:41> - General Chief Complaint: Cardiovascular Problem Stated Complaint: chest pain Time Seen by Provider: 05/12/16 06:09 - History of Present Illness Allergies/Adverse Reactions: Allergies Codeine Allergy (Verified 02/26/16 06:08) NSAIDs Allergy (Verified 02/26/16 06:08) Penicillin G Allergy (Verified 02/26/16 06:08) Propoxyphene [From Darvon] Allergy (Verified 02/26/16 06:08) Sulfa Drugs Allergy (Verified 02/26/16 06:08) Valsartan [From Diovan] Allergy (Verified 02/26/16 06:08) Home Medications: Ambulatory Orders Calcium Carbonate 260 mg PO DAILY 02/17/15 Citalopram Hydrobromide 20 mg PO DAILY 02/17/15 Furosemide [Lasix] 40 mg PO BID 02/17/15 Gabapentin 300 mg PO TID 02/17/15 Magnesium Oxide 400 mg PO BID 02/17/15 Metoprolol Succinate [Toprol Xl] 50 mg PO DAILY 02/17/15 Orla 3 Fatty Acids-Orla 6 FA [Orla-3 & Orla-6 Fish Oi] 1,000 mg PO DAILY Omeprazole 40 mg PO BID 02/17/15 Oxybutynin Chloride 5 mg PO BEDTIME 02/17/15 Zolpidem Tartrate [Ambien] 5 mg PO BEDTIME 02/17/15 fentaNYL PATCH 25 MCG/HR [Duragesic Patch 25 MCG/HR] 25 mcg TOP Q72H 02/17/15 HYDROcodone 7.5MG/APAP 325MG [[place] 7.5/325] 1 ea PO Q6H PRN 07/29/15 Insulin NPH Isophane & Reg (Hu [Humulin 70/30 (70-30) 100 Unit/ml] 10 units SC .MORNING 07/29/15 Insulin Regular (Human) [Novolin R] 0 unit IJ DAILY PRN 07/29/15 Guaifenesin [Mucinex] 600 mg PO BID #14 tab 07/30/15 Sucralfate Tab [Carafate Tab] 1 gm PO QID #120 tab 02/26/16 Acetaminophen [Tylenol] 500 mg PO BID PRN 05/03/16 Benzonatate Perles [Tessalon Perles] 100 mg PO TID PRN 05/03/16 Docusate Sodium 200 mg PO QID PRN 05/03/16 HYDROcodone 10MG/APAP 325MG [[place] 10/325] 1 tab PO Q4H 05/03/16 Ondansetron Tab [Zofran Tab] 4 mg PO Q4H PRN 05/03/16 Review of Systems - Review of Systems Constitutional: States: no symptoms reported EENTM: States: no symptoms reported Respiratory: States: short of breath Cardiology: States: chest pain Gastrointestinal/Abdominal: States: no symptoms reported Genitourinary: States: no symptoms reported Musculoskeletal: States: joint pain, muscle pain, muscle stiffness Skin: States: no symptoms reported Neurological: States: no symptoms reported Endocrine: States: no symptoms reported Hematologic/Lymphatic: States: no symptoms reported All other Systems: Reviewed and Negative <Susi Alejandro - Last Filed: 05/12/16 06:10> Past Medical History (General) - Patient Medical History Hx Seizures: No Hx Stroke: No Hx Dementia: No Hx Asthma: No Hx of COPD: No Hx Cardiac Disorders: No Hx Congestive Heart Failure: No Hx Pacemaker: No Hx Hypertension: Yes Hx Thyroid Disease: No Hx Diabetes: Yes - type 2 Hx Gastroesophageal Reflux: Yes Hx Renal Disease: No Hx Cancer: No Hx of HIV: No Hx Hepatitis C: No Hx MRSA: No MRSA Source:: Wound - Vaccination History Hx Tetanus, Diphtheria Vaccination: - unknown Hx Influenza Vaccination: Yes Hx Pneumococcal Vaccination: Yes - Social History Hx Tobacco Use: No Hx Chewing Tobacco Use: No Hx Alcohol Use: No Hx Substance Use: No Hx Substance Use Treatment: No Hx Depression: No Hx Physical Abuse: No Hx Emotional Abuse: No Hx Suspected Abuse: No - Activities of Daily Living Senior Living/Assisted Living (if applicable):: [facility] - Female History Patient : No <Susi Alejandro - Last Filed: 05/12/16 06:10> Family Medical History - Family History Mother Family History: Unknown Living Status: Hx Family Cancer: Yes - Liver <Susi Alejandro - Last Filed: 05/12/16 06:10> Physical Exam - Physical Exam General Appearance: Alert, Comfortable, No apparent distress Ears, Nose, Throat: hearing grossly normal, normal ENT inspection Respiratory: lungs clear, normal breath sounds, no respiratory distress, no accessory muscle use Cardiovascular/Chest: normal peripheral pulses, no edema, no gallop, bradycardia , systolic murmur - II/ Gastrointestinal/Abdominal: normal bowel sounds, non tender, soft, no organomegaly, no pulsatile mass Extremity: no pedal edema, pelvis stable, calf tenderness, other - left hip tenderness at joint Neurologic: alert, normal mood/affect, oriented x 3 Skin Exam: normal color, warm/dry <Susi Alejandro - Last Filed: 05/12/16 06:10> Progress - EKG/XRAY/CT EKG: Luke - 53 bpm, Sinus, nonspecific ST T wave Chg - T wave inversion V1, V2 , Changed from - 02/26/16 - T wave inversion now Comments: LAD, Prolonged QT, Boderline EKG <Susi Alejandro - Last Filed: 05/12/16 06:10> - Progress Progress: 05/12/16 07:11 Laboratory Tests 05/12/16 05:43 WBC 5.9 RBC 4.39 Hgb 10.3 L Hct 33.3 L MCV 75.8 L MCH 23.4 L MCHC 31.0 L RDW 17.2 H Plt Count 302 MPV 8.6 Absolute Neuts (auto) 3.50 Absolute Lymphs (auto) 1.70 Absolute Monos (auto) 0.50 Absolute Eos (auto) 0.20 Absolute Basos (auto) 0.10 Neutrophils % 58.9 Lymphocytes % 28.6 Monocytes % 8.8 Eosinophils % 2.7 Basophils % 1.0 PT 12.1 INR 1.070 PTT (SP) 31.9 Sodium 139 Potassium 3.8 Chloride 97 L Carbon Dioxide 33 H Anion Gap 12.8 BUN 43 H Creatinine 1.54 H BUN/Creatinine Ratio 27.9 H Random Glucose 106 H Serum Osmolality 288.8 Calcium 9.5 Magnesium 2.1 Creatine Kinase 71 CK-MB (CK-2) 3.1 CK-MB (CK-2) % 0.01 Troponin I 0.01 B-Natriuretic Peptide 302.0 H* 05/12/16 10:38 Second set of cardiac enzymes is normal. Will d/c back to [facility] - Results/Orders Results/Orders: Patient resting comfortably. Upon waking she c/o of hip pain. Explained chronic fractures and most likely is time for her pain medication so will give her the Hydrocodone that is on her medication list. Advised of nl workup so far. Anemia and renal insuff unchanged from prior labs. Will repeat cardiac labs @ 9:45. If second set are normal with d/c back to [facility]. - EKG/XRAY/CT XRAY: chest - LLL atelectasis vs pneumonia Xray Comments: Hip - chronic nonuinion fx of bilat superior and inferior pubic rami <Amparo Gonzalez - Last Filed: 05/12/16 10:41> Departure <Susi Alejandro - Last Filed: 05/12/16 06:10> - Departure Time of Disposition: 10:39 Diet: resume usual diet Activity: increase activity as tolerated <Amparo Gonzalez - Last Filed: 05/12/16 10:41> - Departure Clinical Impression: Chest pain, Hip pain, chronic Disposition: Discharge to SNF Condition: Good Departure Forms: ED Discharge - Pt. Copy, Patient Portal Self Enrollment Instructions: DI for Chest Pain Home Medications: Ambulatory Orders Calcium Carbonate 260 mg PO DAILY 02/17/15 Citalopram Hydrobromide 20 mg PO DAILY 02/17/15 Furosemide [Lasix] 40 mg PO BID 02/17/15 Gabapentin 300 mg PO TID 02/17/15 Magnesium Oxide 400 mg PO BID 02/17/15 Metoprolol Succinate [Toprol Xl] 50 mg PO DAILY 02/17/15 Orla 3 Fatty Acids-Orla 6 FA [Orla-3 & Orla-6 Fish Oi] 1,000 mg PO DAILY Omeprazole 40 mg PO BID 02/17/15 Oxybutynin Chloride 5 mg PO BEDTIME 02/17/15 Zolpidem Tartrate [Ambien] 5 mg PO BEDTIME 02/17/15 fentaNYL PATCH 25 MCG/HR [Duragesic Patch 25 MCG/HR] 25 mcg TOP Q72H 02/17/15 HYDROcodone 7.5MG/APAP 325MG [[place] 7.5/325] 1 ea PO Q6H PRN 07/29/15 Insulin NPH Isophane & Reg (Hu [Humulin 70/30 (70-30) 100 Unit/ml] 10 units SC .MORNING 07/29/15 Insulin Regular (Human) [Novolin R] 0 unit IJ DAILY PRN 07/29/15 Guaifenesin [Mucinex] 600 mg PO BID #14 tab 07/30/15 Sucralfate Tab [Carafate Tab] 1 gm PO QID #120 tab 02/26/16 Acetaminophen [Tylenol] 500 mg PO BID PRN 05/03/16 Benzonatate Perles [Tessalon Perles] 100 mg PO TID PRN 05/03/16 Docusate Sodium 200 mg PO QID PRN 05/03/16 HYDROcodone 10MG/APAP 325MG [[place] 10/325] 1 tab PO Q4H 05/03/16 Ondansetron Tab [Zofran Tab] 4 mg PO Q4H PRN 05/03/16
--- NOTE | 2016-05-12 06:59 | RAD ---
EXAM: Single view chest. INDICATION: Chest pain. COMPARISON: Chest x-ray: 05/03/2016. FINDINGS: There are left basilar interstitial opacities. The heart size is stable. There is no pneumothorax. A small left pleural effusion may be present. Degenerative changes affect both shoulders. IMPRESSION: Left basilar interstitial opacities, which may represent atelectasis or pneumonia Electronically signed by: Dimas Goodman MD 05/12/2016 6:58 AM NEEDLE BAR MOLDER
--- NOTE | 2016-05-12 07:30 | RAD ---
Clinical history: MAIN.: 1930.Sex: Female. Technique: AP view of the pelvis. Comparison: CT dated 05/03/2016 Findings: Again noted are chronic and nonunited fractures involving the bilateral superior and inferior pubic rami. No new fractures identified. The bilateral sacroiliac joints and hip joints appear intact. Impression: Chronic and nonunited fractures involving the bilateral superior and inferior pubic rami. No new fractures detected Electronically signed by: Dimas Goodman MD 05/12/2016 7:29 AM CD MIXER
[2016-05-12] MEDS ORDERED: HYDROcodone 10MG/APAP 325MG 1 EA TAB PO ONE (07:43)
[2016-05-12 10:38] VITALS: BP 186/84; O2SAT 95
[2016-05-12 11:20] VITALS: TEMP 95.9
--- NOTE | 2016-05-28 23:58 | RAD ---
Clinical history: MAIN.: 1930.Sex: Female. Technique: AP view of the pelvis. Comparison: CT dated 05/03/2016 Findings: Again noted are chronic and nonunited fractures involving the bilateral superior and inferior pubic rami. No new fractures identified. The bilateral sacroiliac joints and hip joints appear intact. Impression: Chronic and nonunited fractures involving the bilateral superior and inferior pubic rami. No new fractures detected Electronically signed by: Dimas Goodman MD 05/12/2016 7:29 AM AUTOMOTIVE FINANCE MANAGER
--- NOTE | 2016-05-28 23:58 | RAD ---
EXAM: Single view chest. INDICATION: Chest pain. COMPARISON: Chest x-ray: 05/03/2016. FINDINGS: There are left basilar interstitial opacities. The heart size is stable. There is no pneumothorax. A small left pleural effusion may be present. Degenerative changes affect both shoulders. IMPRESSION: Left basilar interstitial opacities, which may represent atelectasis or pneumonia Electronically signed by: Dimas Goodman MD 05/12/2016 6:58 AM LOG INSPECTOR
--- NOTE | 2016-05-29 05:37 | RAD ---
Clinical history: MAIN.: 1930.Sex: Female. Technique: AP view of the pelvis. Comparison: CT dated 05/03/2016 Findings: Again noted are chronic and nonunited fractures involving the bilateral superior and inferior pubic rami. No new fractures identified. The bilateral sacroiliac joints and hip joints appear intact. Impression: Chronic and nonunited fractures involving the bilateral superior and inferior pubic rami. No new fractures detected Electronically signed by: Dimas Goodman MD 05/12/2016 7:29 AM COSTUME SHOP COORDINATOR
== END 2016-05-12 11:20 ==
LOC: ER 05:36
DX: R07.9 Chest pain, unspecified (principal); M25.559 Pain in unspecified hip; G89.29 Other chronic pain; I10 Essential (primary) hypertension; K21.9 Gastro-esophageal reflux disease without esophagitis; E11.9 Type 2 diabetes mellitus without complications; Z88.6 Allergy status to analgesic agent; Z88.0 Allergy status to penicillin; Z79.4 Long term (current) use of insulin; Z79.899 Other long term (current) drug therapy

== ENCOUNTER 2017-02-01 12:47 | Emergency (ER) | payer MEDICARE, MEDICAID ==
[2017-02-01 14:04] VITALS: TEMP 98.6
--- NOTE | 2017-02-01 14:27 | ED.PDOC ---
History of Present Illness - General Chief Complaint: Blood Pressure Problem Stated Complaint: hypertension, decreased loc Time Seen by Provider: 02/01/17 14:19 Source: patient, family Exam Limitations: no limitations - History of Present Illness Initial Comments: Al[place] Jane 87 y/o female [place] resident was sent to ER by nurse after it was found blood pressure is elevated and somnolent .On her daughters arrival she was tlking more stating the nurse told her to come to er stated she has back for many years pains daughter stated that she has bad scoliosis as well as chronic back problem.Has Dm2,htn,ckd Timing/Duration: 4-6 hours Severity: moderate Improving Factors: nothing Worsening Factors: nothing Associated Symptoms: other - see hpi Allergies/Adverse Reactions: Allergies Codeine Allergy (Verified 02/01/17 14:04) NSAIDs Allergy (Verified 02/01/17 14:04) Penicillin G Allergy (Verified 02/01/17 14:04) Propoxyphene [From Darvon] Allergy (Verified 02/01/17 14:04) Sulfa Drugs Allergy (Verified 02/01/17 14:04) Valsartan [From Diovan] Allergy (Verified 02/01/17 14:04) Home Medications: Ambulatory Orders Calcium Carbonate 260 mg PO DAILY 02/17/15 Citalopram Hydrobromide 20 mg PO DAILY 02/17/15 Furosemide [Lasix] 40 mg PO BID 02/17/15 Gabapentin 300 mg PO TID 02/17/15 Magnesium Oxide 400 mg PO BID 02/17/15 Metoprolol Succinate [Toprol Xl] 50 mg PO DAILY 02/17/15 [place] 3 Fatty Acids-[place] 6 FA [[place]-3 & [place]-6 Fish Oi] 1,000 mg PO DAILY Omeprazole 40 mg PO BID 02/17/15 Oxybutynin Chloride 5 mg PO BEDTIME 02/17/15 Zolpidem Tartrate [Ambien] 5 mg PO BEDTIME 02/17/15 fentaNYL PATCH 25 MCG/HR [Duragesic Patch 25 MCG/HR] 25 mcg TOP Q72H 02/17/15 HYDROcodone 7.5MG/APAP 325MG [[place] 7.5/325] 1 ea PO Q6H PRN 07/29/15 Insulin NPH Isophane & Reg (Hu [Humulin 70/30 (70-30) 100 Unit/ml] 10 units SC .MORNING 07/29/15 Insulin Regular (Human) [Novolin R] 0 unit IJ DAILY PRN 07/29/15 Guaifenesin [Mucinex] 600 mg PO BID #14 tab 07/30/15 Sucralfate Tab [Carafate Tab] 1 gm PO QID #120 tab 02/26/16 Acetaminophen [Tylenol] 500 mg PO BID PRN 05/03/16 Benzonatate Perles [Tessalon Perles] 100 mg PO TID PRN 05/03/16 Docusate Sodium 200 mg PO QID PRN 05/03/16 HYDROcodone 10MG/APAP 325MG [[place] 10/325] 1 tab PO Q4H 05/03/16 Ondansetron Tab [Zofran Tab] 4 mg PO Q4H PRN 05/03/16 Review of Systems - Review of Systems Constitutional: States: no symptoms reported EENTM: States: no symptoms reported Respiratory: States: no symptoms reported Cardiology: States: no symptoms reported Gastrointestinal/Abdominal: States: no symptoms reported Musculoskeletal: States: see HPI Skin: States: no symptoms reported Neurological: States: see HPI, weakness - chronic Endocrine: States: no symptoms reported Past Medical History (General) - Patient Medical History Hx Seizures: No Hx Stroke: No Hx Dementia: No Hx Asthma: No Hx of COPD: No Hx Cardiac Disorders: No Hx Congestive Heart Failure: No Hx Pacemaker: No Hx Hypertension: Yes Hx Thyroid Disease: No Hx Diabetes: Yes - type 2 Hx Gastroesophageal Reflux: Yes Hx Renal Disease: No Hx Cancer: No Hx of HIV: No Hx Hepatitis C: No Hx MRSA: No MRSA Source:: Wound Surgical History: cholecystectomy, tonsillectomy, other - hysterectomy - Vaccination History Hx Tetanus, Diphtheria Vaccination: - unknown Hx Influenza Vaccination: Yes Hx Pneumococcal Vaccination: Yes - Social History Hx Tobacco Use: No Hx Chewing Tobacco Use: No Hx Alcohol Use: No Hx Substance Use: No Hx Substance Use Treatment: No Hx Depression: No Hx Physical Abuse: No Hx Emotional Abuse: No Hx Suspected Abuse: No - Activities of Daily Living Alf/Assisted Living (if applicable):: [facility] Grooming Ability: Maximum Assistance Eating (Feeding) Ability: Maximum Assistance Toileting Ability: Maximum Assistance - Female History Patient is a Female of Child Bearing Age (10 -59 yrs old): No Patient : No Family Medical History - Family History Mother Family History: Unknown Living Status: Hx Family Cancer: Yes - Liver Physical Exam - Physical Exam General Appearance: Alert, No apparent distress Eye Exam: left other - decreased vision CF only Ears, Nose, Throat: normal ENT inspection, normal pharynx Neck: supple, normal inspection Respiratory: lungs clear, normal breath sounds, no respiratory distress Cardiovascular/Chest: normal peripheral pulses, regular rate, rhythm, systolic murmur - 2nd ics left Peripheral Pulses: radial,right: 2+, radial,left: 2+ Gastrointestinal/Abdominal: non tender, soft, no organomegaly Extremity: non-tender, no calf tenderness, pedal edema Neurologic: no motor/sensory deficits, alert, oriented x 3 Skin Exam: warm/dry, rash - lower extremity Lymphatic: no adenopathy Progress - Progress Progress: 02/01/17 14:38 Vital Signs - 8 hr 02/01/17 13:40 Temperature 98.6 F Pulse Rate [ 66 pulse ox] Respiratory 20 Rate Blood Pressure 160/81 [Left Arm] O2 Sat by Pulse 94 L Oximetry - Results/Orders Results/Orders: Laboratory Tests 02/01/17 02/01/17 14:44 14:44 WBC 11.5 H RBC 3.97 L Hgb 8.3 L Hct 27.8 L MCV 70.0 L MCH 20.9 L MCHC 30.0 L RDW 17.5 H Plt Count 266 MPV 8.4 Absolute Neuts (auto) 10.20 H Absolute Lymphs (auto) 0.80 L Absolute Monos (auto) 0.40 Absolute Eos (auto) 0.00 Absolute Basos (auto) 0.10 Neutrophils % 89.0 H Lymphocytes % 6.7 L Monocytes % 3.5 Eosinophils % 0.2 L Basophils % 0.6 Sodium 137 Potassium 4.4 Chloride 97 L Carbon Dioxide 33 H Anion Gap 11.4 L BUN 50 H Creatinine 1.86 H BUN/Creatinine Ratio 26.9 H Random Glucose 69 L Serum Osmolality 285.5 Calcium 8.7 Total Bilirubin 0.3 AST 12 ALT 10 Alkaline Phosphatase 82 Serum Total Protein 7.6 Albumin 3.3 Globulin 4.3 H Albumin/Globulin Ratio 0.8 L Departure - Departure Clinical Impression: Renal insufficiency, Acute exacerbation of chronic low back pain Hypertension Qualifiers: Hypertension type: unspecified Qualified Code(s): I10 - Essential (primary) hypertension Anemia Qualifiers: Anemia type: unspecified type Qualified Code(s): D64.9 - Anemia, unspecified Time of Disposition: 17:48 Disposition: Discharge to SNF Condition: Fair Departure Forms: ED Discharge - Pt. Copy, Patient Portal Self Enrollment Instructions: DI for High Blood Pressure Referrals: Agus Calero MD [Primary Care Provider] - 1-2 Weeks Home Medications: Ambulatory Orders Calcium Carbonate 260 mg PO DAILY 02/17/15 Citalopram Hydrobromide 20 mg PO DAILY 02/17/15 Furosemide [Lasix] 40 mg PO BID 02/17/15 Gabapentin 300 mg PO TID 02/17/15 Magnesium Oxide 400 mg PO BID 02/17/15 Metoprolol Succinate [Toprol Xl] 50 mg PO DAILY 02/17/15 [place] 3 Fatty Acids-[place] 6 FA [[place]-3 & [place]-6 Fish Oi] 1,000 mg PO DAILY Omeprazole 40 mg PO BID 02/17/15 Oxybutynin Chloride 5 mg PO BEDTIME 02/17/15 Zolpidem Tartrate [Ambien] 5 mg PO BEDTIME 02/17/15 fentaNYL PATCH 25 MCG/HR [Duragesic Patch 25 MCG/HR] 25 mcg TOP Q72H 02/17/15 HYDROcodone 7.5MG/APAP 325MG [[place] 7.5/325] 1 ea PO Q6H PRN 07/29/15 Insulin NPH Isophane & Reg (Hu [Humulin 70/30 (70-30) 100 Unit/ml] 10 units SC .MORNING 07/29/15 Insulin Regular (Human) [Novolin R] 0 unit IJ DAILY PRN 07/29/15 Guaifenesin [Mucinex] 600 mg PO BID #14 tab 07/30/15 Sucralfate Tab [Carafate Tab] 1 gm PO QID #120 tab 02/26/16 Acetaminophen [Tylenol] 500 mg PO BID PRN 05/03/16 Benzonatate Perles [Tessalon Perles] 100 mg PO TID PRN 05/03/16 Docusate Sodium 200 mg PO QID PRN 05/03/16 HYDROcodone 10MG/APAP 325MG [[place] 10/325] 1 tab PO Q4H 05/03/16 Ondansetron Tab [Zofran Tab] 4 mg PO Q4H PRN 05/03/16 Additional Instructions: Follow up with primary md call for appointment
--- NOTE | 2017-02-01 16:33 | RAD ---
PROCEDURE: Pelvis,2 or More Views Clinical History: pain Indication: Same as above Comparison: None . Technique: 3.0 frontal views of the pelvis Findings: All the three views of the pelvis are underpenetrated, making it nondiagnostic study for evaluation of pelvic bony pathology Impression: All the three views of the pelvis are underpenetrated, most likely due to patient's body habitus, making it nondiagnostic study for evaluation of pelvic bony pathology. A CT of the pelvis may be helpful to assess the pelvic bones Place of interpretation: [id number]. Electronically signed by: Matt Bryant MD 02/01/2017 4:32 PM CDT Workstation: [id number]
--- NOTE | 2017-02-01 16:34 | RAD ---
PROCEDURE: XR CHEST 1 VIEW HISTORY: 05/12/2016 COMPARISON: None TECHNIQUE: Single projection of the chest was done. FINDINGS: The lung christopher are well inflated . There are no discrete airspace infiltrates, pneumothoraces or pleural effusions. The pulmonary vascularity is normal. The cardiomediastinal silhouette is stable. IMPRESSION: There is no acute pleural-parenchymal process seen in the imaged lung christopher. Location of Interpretation: [facility] Electronically signed by: Matt Bryant MD 02/01/2017 4:33 PM CDT Workstation: [id number]
[2017-02-01 17:44] VITALS: BP 88/59; O2SAT 95
== END 2017-02-01 18:15 ==
LOC: ER 12:47
DX: I10 Essential (primary) hypertension (principal); G89.29 Other chronic pain; M54.5 Low back pain; N28.9 Disorder of kidney and ureter, unspecified; D64.9 Anemia, unspecified; E11.9 Type 2 diabetes mellitus without complications; Z88.2 Allergy status to sulfonamides; Z88.6 Allergy status to analgesic agent

== ENCOUNTER 2017-03-01 16:49 | Observation (INO) | payer MEDICARE, MEDICAID ==
[2017-03-01] MEDS ORDERED: IPRATROPIUM/ALBUTEROL 3 ML VIAL NEB ONE (17:06)
--- NOTE | 2017-03-01 17:39 | RAD ---
EXAM DESCRIPTION: Chest,1 View CLINICAL HISTORY: cough, sob COMPARISON: 02-01-17 FINDINGS: Cardiac silhouette is stable. There is atelectasis but no definite consolidation at the left lung base. Right lung is clear . Visualized osseous structures are within normal limits. IMPRESSION: No evidence of acute cardiopulmonary disease. Electronically signed by: Marcos Sevilla 03/01/2017 5:37 PM MANAGER OPERATIONS AND PROCUREMENT
[2017-03-01] MEDS ORDERED: predniSONE 20 MG TAB PO ONE (17:54)
[2017-03-01] MEDS ORDERED: diphenhydrAMINE HCL 25 MG CAP PO ONE (17:54)
[2017-03-01] MEDS ORDERED: ACETAMINOPHEN 325 MG TAB PO ONE (17:54)
--- NOTE | 2017-03-01 18:22 | ED.PDOC ---
History of Present Illness - General Chief Complaint: Respiratory Problem Stated Complaint: cough Time Seen by Provider: 03/01/17 17:04 Source: patient, family Exam Limitations: clinical condition - History of Present Illness Initial Comments: the patient is an 87-year-old female presenting to the emergency room secondary to symptoms of increasing generalized fatigue, malaise, weakness and dizziness with activity, along with shortness of breath and a mildly productive cough of a clear sputum. No definite sore throat or runny nose. No nausea vomiting or diarrhea. Her appetite has been poor. She is on hospice forend- stage renal disease. She does apparently have a history of pulmonary disease as well as some CHF. Her EKG back in October showed a normal sinus rhythm. Timing/Duration: unsure Severity: moderate Improving Factors: nothing Worsening Factors: nothing Associated Symptoms: loss of appetite, malaise, shortness of breath, weakness Allergies/Adverse Reactions: Allergies Codeine Allergy (Verified 03/01/17 17:11) NSAIDs Allergy (Verified 03/01/17 17:11) Penicillin G Allergy (Verified 03/01/17 17:11) Propoxyphene [From Darvon] Allergy (Verified 03/01/17 17:11) Sulfa Drugs Allergy (Verified 03/01/17 17:11) Valsartan [From Diovan] Allergy (Verified 03/01/17 17:11) Home Medications: Ambulatory Orders Calcium Carbonate 260 mg PO DAILY 02/17/15 Citalopram Hydrobromide 20 mg PO DAILY 02/17/15 Furosemide [Lasix] 40 mg PO BID 02/17/15 Gabapentin 300 mg PO TID 02/17/15 Magnesium Oxide 400 mg PO BID 02/17/15 Metoprolol Succinate [Toprol Xl] 50 mg PO DAILY 02/17/15 [place] 3 Fatty Acids-[place] 6 FA [[place]-3 & [place]-6 Fish Oi] 1,000 mg PO DAILY Omeprazole 40 mg PO BID 02/17/15 Oxybutynin Chloride 5 mg PO BEDTIME 02/17/15 fentaNYL PATCH 25 MCG/HR [Duragesic Patch 25 MCG/HR] 50 mcg TOP Q72H 02/17/15 Acetaminophen [Tylenol] 500 mg PO BID PRN 05/03/16 Benzonatate Perles [Tessalon Perles] 100 mg PO TID PRN 05/03/16 Docusate Sodium 200 mg PO QID PRN 05/03/16 HYDROcodone 10MG/APAP 325MG [[place] 10/325] 1 tab PO Q4H PRN 05/03/16 Ondansetron Tab [Zofran Tab] 4 mg PO Q4H PRN 05/03/16 Carboxymethylcellulose Sodium [Retaine Cmc] 0.3 % OP BID 03/01/17 HYDROcodone 10MG/APAP 325MG [[place] 10/325] 1 tab PO BID 03/01/17 Insulin Regular (Human) [Novolin R U-100] 100 unit IJ QID 03/01/17 Lorazepam [Lorazepam Intensol] 2 mg PO Q2H PRN 03/01/17 Melatonin 6 mg PO BEDTIME 03/01/17 Morphine Sulfate 20 mg PO Q1H PRN 03/01/17 Nystatin Powder [Mycostatin] 15 gm TOP PRN 03/01/17 Review of Systems - Review of Systems Constitutional: States: malaise, weakness - eneralized EENTM: States: no symptoms reported Respiratory: States: cough, short of breath Cardiology: States: no symptoms reported Gastrointestinal/Abdominal: States: no symptoms reported Genitourinary: States: no symptoms reported Musculoskeletal: States: see HPI - hronic issues only Skin: States: no symptoms reported Neurological: States: no symptoms reported - ild dementia Past Medical History (General) - Patient Medical History Hx Seizures: No Hx Stroke: No Hx Dementia: No Hx Asthma: No Hx of COPD: No Hx Cardiac Disorders: No Hx Congestive Heart Failure: No Hx Pacemaker: No Hx Hypertension: Yes Hx Thyroid Disease: No Hx Diabetes: Yes - type 2 Hx Gastroesophageal Reflux: Yes Hx Renal Disease: No Hx Cancer: No Hx of HIV: No Hx Hepatitis C: No Hx MRSA: No MRSA Source:: Wound - Vaccination History Hx Tetanus, Diphtheria Vaccination: - unknown Hx Influenza Vaccination: Yes Hx Pneumococcal Vaccination: Yes - Social History Hx Tobacco Use: No Hx Chewing Tobacco Use: No Hx Alcohol Use: No Hx Substance Use: No Hx Substance Use Treatment: No Hx Depression: No Hx Physical Abuse: No Hx Emotional Abuse: No Hx Suspected Abuse: No - Activities of Daily Living Shelter/Assisted Living (if applicable):: [facility] - Female History Patient is a Female of Child Bearing Age (10 -59 yrs old): No Patient : No Family Medical History - Family History Mother Family History: Unknown Living Status: Hx Family Cancer: Yes - Liver Physical Exam - Physical Exam General Appearance: Alert, Frail, No apparent distress Eye Exam: bilateral normal Ears, Nose, Throat: normal pharynx, other - hearing is chronically decreased bilaterally. Neck: non-tender, supple, normal inspection Respiratory: chest non-tender, no respiratory distress, no accessory muscle use , crackles, rales, rhonchi - mild bilateral. No wheezing. Cardiovascular/Chest: normal peripheral pulses, other - egular rate and irregular rhythm Peripheral Pulses: radial,right: 2+, radial,left: 2+, dorsalis pedis,right: 2+, dorsalis pedis,left: 2+ Gastrointestinal/Abdominal: non tender, soft Rectal Exam: deferred Back Exam: no CVA tenderness, no vertebral tenderness Extremity: normal range of motion, non-tender, normal inspection, normal capillary refill, pedal edema - more to the right lower extremity than the left. Both are mildly uncomfortable to palpation. Neurologic: vacation planner II-XII nml as tested - hearing is decreased as above, alert, normal mood/affect, oriented x 3 - he technically misses the date by a little bit Skin Exam: pallor Comments: Vital Signs - 24 hr 03/01/17 03/01/17 03/01/17 16:55 17:23 18:06 Temperature 99.8 F H Pulse Rate 75 Pulse Rate [ 82 pulse ox] Respiratory 20 20 20 Rate Blood Pressure 98/74 [Left Arm] O2 Sat by Pulse 91 L 98 Oximetry Progress - Progress Progress: 03/01/17 18:24 the patient is an 87-year-old female presenting to the emergency room with what appears to be symptomatic anemia giving her some atrial fibrillation which is causing CHF exacerbation and symptoms related to that. renal function is a little worse bilaterally likely reflective of the anemia. Anemia is probably due to the renal insufficiency but she has had positive stool guaiacs in the past. There is no recent history of any frankly melanotic or bloody stools. She does have a low MCV that is at least consistent with iron deficiency. Continue oxygen. We will plan on the patient having 2 units of packed red blood cells. She will receive a small dose of Lasix with the first unit. Admit for above reasons. Continue telemetry monitoring during transfusion. For now no additional antiarrhythmic medications are going to be given. No additional blood thinners at this time either. - Results/Orders Results/Orders: 03/01/17 17:05 Telemetry .CONTINUOUS 03/01/17 17:15 EKG STAT 03/01/17 17:28 BLOOD CULTURE Stat 03/01/17 17:55 UA [URINALYSIS] Stat 03/01/17 17:57 PACKED CELLS,LR Stat TYPE AND SCREEN Stat Laboratory Results - last 24 hr 03/01/17 03/01/17 03/01/17 17:28 17:28 17:57 WBC 7.6 RBC 3.20 L Hgb 6.5 L* Hct 22.0 L MCV 68.6 L MCH 20.3 L MCHC 29.6 L RDW 18.3 H Plt Count 290 MPV 7.9 Absolute Neuts (auto) 4.90 Absolute Lymphs (auto) 1.70 Absolute Monos (auto) 0.70 Absolute Eos (auto) 0.20 Absolute Basos (auto) 0.10 Neutrophils % 64.1 Lymphocytes % 23.0 Monocytes % 9.3 H Eosinophils % 2.4 Basophils % 1.2 Sodium 139 Potassium 4.7 Chloride 99 L Carbon Dioxide 33 H Anion Gap 11.7 L BUN 47 H Creatinine 2.36 H BUN/Creatinine Ratio 19.9 Random Glucose 120 H Serum Osmolality 291.0 Calcium 7.9 L Magnesium 2.4 Total Bilirubin 0.4 AST 13 ALT 11 Alkaline Phosphatase 75 Creatine Kinase 89 CK-MB (CK-2) 2.0 CK-MB (CK-2) % Not Reportable Troponin I 0.03 B-Natriuretic Peptide 532.0 H* Serum Total Protein 7.2 Albumin 3.1 L Globulin 4.1 H Albumin/Globulin Ratio 0.8 L Crossmatch See Detail chest x-ray shows no obvious infiltrate or definite fluid overload. EKG shows atrial fibrillation at rate of 82 bpm. She is in atrial fibrillation. No definitive ST segment changes diagnostic for ischemia on his EKG but there is a significant baseline tremor. Borderline prolonged QT interval. Departure - Departure Clinical Impression: Symptomatic anemia Acute exacerbation of CHF (congestive heart failure) Qualifiers: Congestive heart failure type: unspecified congestive heart failure type Qualified Code(s): I50.9 - Heart failure, unspecified Atrial fibrillation Qualifiers: Atrial fibrillation type: paroxysmal Qualified Code(s): I48.0 - Paroxysmal atrial fibrillation Disposition: Admit Patient Referrals: Agus Calero MD [Primary Care Provider] - 1-2 Weeks Home Medications: Ambulatory Orders Calcium Carbonate 260 mg PO DAILY 02/17/15 Citalopram Hydrobromide 20 mg PO DAILY 02/17/15 Furosemide [Lasix] 40 mg PO BID 02/17/15 Gabapentin 300 mg PO TID 02/17/15 Magnesium Oxide 400 mg PO BID 02/17/15 Metoprolol Succinate [Toprol Xl] 50 mg PO DAILY 02/17/15 [place] 3 Fatty Acids-[place] 6 FA [[place]-3 & [place]-6 Fish Oi] 1,000 mg PO DAILY Omeprazole 40 mg PO BID 02/17/15 Oxybutynin Chloride 5 mg PO BEDTIME 02/17/15 fentaNYL PATCH 25 MCG/HR [Duragesic Patch 25 MCG/HR] 50 mcg TOP Q72H 02/17/15 Acetaminophen [Tylenol] 500 mg PO BID PRN 05/03/16 Benzonatate Perles [Tessalon Perles] 100 mg PO TID PRN 05/03/16 Docusate Sodium 200 mg PO QID PRN 05/03/16 HYDROcodone 10MG/APAP 325MG [[place] 10/325] 1 tab PO Q4H PRN 05/03/16 Ondansetron Tab [Zofran Tab] 4 mg PO Q4H PRN 05/03/16 Carboxymethylcellulose Sodium [Retaine Cmc] 0.3 % OP BID 03/01/17 HYDROcodone 10MG/APAP 325MG [[place] 10/325] 1 tab PO BID 03/01/17 Insulin Regular (Human) [Novolin R U-100] 100 unit IJ QID 03/01/17 Lorazepam [Lorazepam Intensol] 2 mg PO Q2H PRN 03/01/17 Melatonin 6 mg PO BEDTIME 03/01/17 Morphine Sulfate 20 mg PO Q1H PRN 03/01/17 Nystatin Powder [Mycostatin] 15 gm TOP PRN 03/01/17 Decision To Admit - Decistion To Admit Decision to Admit Reason: Medical Nature Decision to Admit Date: 03/01/17 Decision to Admit Time: 18:27
[2017-03-01] MEDS ORDERED: SODIUM CHLORIDE 0.9% (FLUSH) 10 ML SYG IV PRN (19:25)
[2017-03-01] MEDS ORDERED: IV SET AND CAP CHANGE INJ INJ SCH (19:30)
[2017-03-01] MEDS ORDERED: GLUCAGON INJ 1 MG VIAL SUBCU PRN (19:35)
[2017-03-01] MEDS ORDERED: DEXTROSE 50% 25 GM/50 ML SYG IV PRN (19:35)
--- NOTE | 2017-03-01 19:40 | HP ---
HISTORY OF PRESENT ILLNESS: This 87 year-old white female who is a resident of [facility] is placed in the hospital for overnight observation. She comes to the Emergency Room because of worsening weakness and associated shortness of breath getting worse for the last 2 weeks. She has been on [facility] because of chronic end stage renal failure. She has been significantly disabled with associated dementia as well. She has had increasing edema state here recently. In the Emergency Room, she was found to be quite anemic with hemoglobin of only 6.5 with a microcytic hypochromic presentation. Her chronic renal failure persists with a BUN of 47 and creatinine of 2.36. Hypertension is evident. Congestive heart failure persists with a BNP of 532. Daughter is present to assist with the history collection. The patient is placed in the hospital overnight to receive 2 units of packed red blood cells very slowly and in a controlled fashion, and then stabilization of her condition and then return to [facility] for continued alf care. PAST MEDICAL HISTORY: 1. Diabetes mellitus type 2 on insulin supplementation as a sliding scale. 2. Chronic dementia. 3. Hypertension. 4. Depression. 5. Gastroesophageal reflux disease with symptomatic esophagitis. 6. Chronic renal disease stage 3. PAST SURGICAL HISTORY: 1. Hysterectomy. 2. Appendectomy. 3. Tonsillectomy. 4. Portion of sigmoid colon removed because of diverticulosis. CURRENT MEDICATIONS: Please refer to nurses' notes for a list of verified medications. ALLERGIES: CODEINE, PENICILLIN, MORPHINE, SULFA MEDICINES AND VALSARTAN. FAMILY HISTORY: Positive for cancer and coronary artery disease. SOCIAL HISTORY: She lives at [facility]. Has 4 children, one of which has recently. No previous history of alcohol or tobacco except second hand tobacco exposure. She has been a homemaker. REVIEW OF SYSTEMS: No significant fever or chills. She has been gaining some weight recently. HEENT: Hearing and vision is not significantly changed. LUNGS: Some shortness of breath upon exertion. CARDIOVASCULAR: No chest pains or palpitations. GASTROINTESTINAL: Some nausea and vomiting noted with 2 emesis yesterday. No history of hematochezia but she does describe black bowel movements in the past. GENITOURINARY: No dysuria. EXTREMITIES: Trace of edema evident. NEUROLOGIC: Generally very weak and general skin is very pale much more so than usual. PHYSICAL EXAMINATION: VITAL SIGNS: Temperature 99.9, blood pressure 156/97, earlier was 98/74, pulse oximetry 91% on room air. Weight is 63.5 estimated weight only. GENERAL: The patient is able to respond to questions and the daughter is able to assist with that collection of history facts. General coloration of the skin is very pale. HEENT: Otherwise unremarkable. CHEST: Lungs have some diminished breath sounds. No chest wall tenderness. CARDIOVASCULAR: Heart tones are somewhat distant yet appear to be fairly regular. Elevated blood pressure noted. ABDOMEN: Soft with no significant organomegaly, masses or tenderness. EXTREMITIES: Quite tender especially the left calf more so than the right with a trace of edema and multiple ecchymosis and bruising from bumping onto her wheelchair with her legs. NEUROLOGIC: She is generally very weak having difficulty getting out of bed and will require some assistance and close followup. LABORATORY: White count of 7,600, hemoglobin 6.5 with microcytic hypochromic indices. Platelets normal at 290,000. Chemistries show potassium 4.7, CO2 of 33, BUN 47 down from 55 nine months ago and creatinine is up to 2.36 from 1.58 nine months ago. Glucose 120, calcium 7.9 with only 3.1 albumin. Beta natriuretic peptide 532. Urine shows pyuria and 3+ bacteriuria and urine culture and blood cultures pending. Influenza A and B negative. RADIOLOGY: Chest x-ray shows no acute findings. DIAGNOSES ON ADMISSION: 1. Acute anemia with a microcytic hypochromic presentation with hemoglobin of 6.5 to receive 2 units of packed red blood cells. 2. Diabetes mellitus type 1 on insulin sliding scale. 3. Hypertension. 4. Chronic renal failure with BUN 47, creatinine 2.36, stage 3 end stage hospice care. 5. Chronic scoliosis. 6. Gastroesophageal reflux disease with associated esophagitis. 7. History of congestive heart failure, chronic with no specific etiology evident with a BNP of 532. 8. Dementia, chronic. PLAN: The patient will be given 2 units of packed red blood cells slowly over 4 hours per unit. Repeat hemoglobin and lab studies in the morning at about 7: 00 AM after the infusions are complete. Continue with sliding scale diabetes control. Await iron studies from blood to be drawn and studied before the infusions are given. Encourage adequate nutrition and continue with outpatient management at [facility] when stable and ready for outpatient management. [facility][id number]
--- NOTE | 2017-03-01 19:48 | PCM.CORE ---
Physician DVT/VTE - 5 or more Very High Risk Treatments: Sequential Compression Device Pharmacological: Enoxaparin 40mg SQ Daily
[2017-03-01] MEDS: LEVALBUTEROL NEBS 0.63 MG/3 ML VIAL INH SCH ×2 (20:05→23:40)
[2017-03-01] MEDS ORDERED: SODIUM CHLORIDE 0.9% 500ML 500 ML ONE (20:32)
[2017-03-01] MEDS: ENOXAPARIN SODIUM 30 MG/0.3 ML SYG SUBCU SCH (20:39)
[2017-03-01] MEDS ORDERED: BENZONATATE PERLES 100 MG CAP PO PRN (21:14)
[2017-03-01] MEDS ORDERED: ONDANSETRON 4 MG TAB PO PRN (21:14)
[2017-03-01] MEDS ORDERED: ACETAMINOPHEN 500 MG TAB PO PRN (21:14)
[2017-03-01] MEDS: HYDROcodone 10MG/APAP 325MG 1 EA TAB PO PRN (21:40)
[2017-03-01] MEDS: [UNRECOGNIZED DRUG - OTHER] TOP SCH (21:51)
[2017-03-01] MEDS: FENTANYL 25 MCG/HR TOP SCH (21:51)
[2017-03-01] MEDS: GABAPENTIN 300 MG CAP PO SCH (21:52)
[2017-03-01] MEDS ORDERED: NYSTATIN POWDER 15GM BTTL TOP SCH (22:00)
[2017-03-01] MEDS: CEFUROXIME AXETIL TAB 250 MG TAB PO SCH (22:52)
[2017-03-02] MEDS ORDERED: fentaNYL PATCH 25 MCG/HR 1 EA PATCH ONE ×2 (00:05→00:10)
[2017-03-02] MEDS: [UNRECOGNIZED DRUG - OTHER] TOP SCH (00:11)
[2017-03-02] MEDS: FENTANYL 25 MCG/HR TOP SCH (00:11)
[2017-03-02] MEDS ORDERED: NYSTATIN POWDER 15GM BTTL TOP PRN (06:31)
[2017-03-02] MEDS ORDERED: LEVALBUTEROL NEBS 1.25 MG/3 ML VIAL NEB ONE (07:12)
[2017-03-02] MEDS ORDERED: INSULIN LISPRO 100 UNITS/ML PEN SUBCU ONE (07:57)
[2017-03-02] MEDS ORDERED: OMEPRAZOLE CAP 20 MG CAP ONE (08:27)
[2017-03-02] MEDS: ENOXAPARIN SODIUM 30 MG/0.3 ML SYG SUBCU SCH (08:33)
[2017-03-02] MEDS: METOPROLOL SUCCINATE XL 50 MG TAB PO SCH (08:33)
[2017-03-02] MEDS: GABAPENTIN 300 MG CAP PO SCH ×2 (08:34→21:20)
[2017-03-02] MEDS: CITALOPRAM HBR 20 MG TAB PO SCH (08:34)
[2017-03-02] MEDS: FUROSEMIDE 40 MG TAB PO SCH (08:34)
[2017-03-02] MEDS: NYSTATIN POWDER 15GM BTTL TOP SCH ×4 (08:40→21:30)
[2017-03-02] MEDS: OMEPRAZOLE CAP 20 MG CAP PO SCH ×2 (08:41→16:44)
[2017-03-02] MEDS: CARBOXYMETHYLCELLULOSE OP SCH ×2 (08:48→21:30)
[2017-03-02] MEDS: LEVALBUTEROL NEBS 0.63 MG/3 ML VIAL INH SCH ×3 (09:21→23:17)
[2017-03-02] MEDS: CEFUROXIME AXETIL TAB 250 MG TAB PO SCH ×2 (11:32→23:30)
[2017-03-02] MEDS: INSULIN LISPRO 100 UNITS/ML PEN SUBCU SCH ×3 (11:56→21:11)
--- NOTE | 2017-03-02 16:17 | PN ---
DATE: 03/02/17 SUPERVISING PHYSICIAN: Pantera Pizano M.D. SUBJECTIVE: The patient is sitting up in her hospital room. She is eating her lunch. She has no complaints of chest pain, shortness of breath, nausea or vomiting, diarrhea, constipation or abdominal pain. She is feeling better except that she does still have some anxiety at times. OBJECTIVE: VITAL SIGNS: She is afebrile, heart rate 91 presently, it has gone up as high at 104 to 123. Blood pressure 142/71, O2 sat 89% on room air, 91% on 2 liters nasal cannula. RESPIRATORY: Essentially clear to auscultation bilaterally. Slightly diminished at the bases. CARDIOVASCULAR: Regular rate and rhythm. ABDOMEN: Soft, nondistended, non-tender. Bowel sounds are positive. NEUROLOGIC: She is awake, alert and oriented times three. LABORATORY: WBCs are 5.4 with hemoglobin 10.1 up from 6.5 yesterday, hematocrit of 31.9. Platelets 263, neutrophils 91.1. Sodium 135, potassium 4.8 , chloride 97, carbon dioxide 27, BUN 45, creatinine 2.8. The patient's baseline is 1.4 to 1.7. Glucose has been running between 201 to 288. Calcium 7.7. Preliminary blood cultures are negative to date. Preliminary urine culture shows gram-negative rods. All other labs and films have been reviewed via the EMR. ASSESSMENT: 1. Acute anemia with microcytic hypochromic presentation. Hemoglobin initially was 6.5 and after receiving 2 units of packed red blood cells it is now 10.1. 2. Diabetes mellitus type 1 on sliding scale. 3. Hypertension. 4. Chronic renal failure with baseline creatinine of 1.4 to 1.7 presently on end stage hospice care for chronic renal failure. 5. Chronic scoliosis. 6. Gastroesophageal reflux disease. 7. Congestive heart failure, chronic with no specific etiology and a BNP on admission of 532. 8. Chronic dementia. PLAN: We will continue present plan of care. We will await her sensitivities on her urine culture tomorrow. Presently she is on Cefdinir and we will change her antibiotics as needed. We will continue to manage her anxiety with her p.r.n. Ativan. She should be discharged tomorrow. We will continue with an additional 11 to [address] therapy[address] Valdez is the collaborating physician available for consultation. [facility][id number] [facility]
[2017-03-02] MEDS: FERROUS SULFATE 325 MG TAB PO SCH (16:49)
[2017-03-02] MEDS: HYDROcodone 10MG/APAP 325MG 1 EA TAB PO PRN (18:54)
[2017-03-02] MEDS ORDERED: LORazepam 0.5 MG TAB ONE (19:49)
[2017-03-02] MEDS ORDERED: LEVALBUTEROL NEBS 0.63 MG/3 ML VIAL INH SCH (20:00)
[2017-03-02] MEDS ORDERED: NITROGLYCERIN 0.4 MG 25 EA TAB SL PRN (20:18)
[2017-03-02] MEDS: NITROGLYCERIN 0.4 MG 25 EA TAB SL PRN ×4 (20:20→20:37)
[2017-03-02] MEDS ORDERED: MELATONIN 3 MG TAB PO SCH (21:00)
[2017-03-02] MEDS ORDERED: NITROGLYCERIN 0.2 MG/HR PATCH TD SCH (21:30)
[2017-03-03 05:55] VITALS: TEMP 97.6
[2017-03-03] MEDS: OMEPRAZOLE CAP 20 MG CAP PO SCH (05:58)
[2017-03-03] MEDS: INSULIN LISPRO 100 UNITS/ML PEN SUBCU SCH ×2 (08:01→12:40)
[2017-03-03] MEDS: LEVALBUTEROL NEBS 0.63 MG/3 ML VIAL INH SCH (08:07)
[2017-03-03 08:49] VITALS: O2SAT 100
[2017-03-03] MEDS ORDERED: SODIUM CHLORIDE 0.9% (FLUSH) 10 ML SYG IV SCH (09:00)
[2017-03-03] MEDS ORDERED: REMOVE OLD PATCH TOP SCH (09:00)
[2017-03-03] MEDS ORDERED: LORazepam 0.5 MG TAB PO PRN (09:10)
--- NOTE | 2017-03-03 09:37 | PN ---
SUPERVISING PHYSICIAN: Pantera Pizano MD DATE: 03/02/17 SUBJECTIVE: I was called to the hospital at approximately 7:15 PM as the patient had complaints of midsternal chest pain. She rated it 10 out of 10. There were no complaints of diaphoresis or nausea or vomiting. A set of cardiac enzymes were done as well as an EKG. When visiting with the patient in the hospital, she told me that she did not want to be sent out of this hospital and her family was called into the patient's bedside. OBJECTIVE: VITAL SIGNS: Pulse rate 79, slightly irregular. Blood pressure ranged between 118/70 to 133/76. Respiratory rate 20, O2 saturation 92% on room air and 95% on 2 liters nasal cannula. LABORATORY: Cardiac enzymes showed a creatinine kinase of 215, CKMB of 24.7, troponin 3.74. Her EKG showed no acute changes or ST elevation. ASSESSMENT: 1. Chest pain with an elevated troponin of 3.74, most likely related to her renal failure but cannot rule out a non-STEMI. PLAN: The patient received relief after receiving one Nitroglycerin sublingual and a Nitroglycerin patch was placed on her. Her chest pain resolved. She is already on a beta breana. Previous to her admission to the hospital she was a DNR and being attended by [facility] due to chronic renal failure. The hospice was rescinded on her admission to receive blood. I spoke at length to the family, her two sons and daughter as well as the patient and they all agreed the patient should be kept as comfortable as possible and the DNR paperwork was signed. At this point, we will continue to monitor the patient. I will continue her nitro patch as an inpatient and as an outpatient she will resume with [facility] on discharge to [facility]. For now, we will continue to monitor closely and follow as needed. I consulted with Dr. Pizano and he is the collaborating physician. [facility][id number] [facility]
[2017-03-03] MEDS: FUROSEMIDE 40 MG TAB PO SCH (09:41)
[2017-03-03] MEDS: CARBOXYMETHYLCELLULOSE OP SCH (09:41)
[2017-03-03] MEDS: FERROUS SULFATE 325 MG TAB PO SCH (09:41)
[2017-03-03] MEDS: CITALOPRAM HBR 20 MG TAB PO SCH (09:41)
[2017-03-03] MEDS: GABAPENTIN 300 MG CAP PO SCH (09:42)
[2017-03-03] MEDS: METOPROLOL SUCCINATE XL 50 MG TAB PO SCH (09:42)
[2017-03-03] MEDS: ENOXAPARIN SODIUM 30 MG/0.3 ML SYG SUBCU SCH (09:42)
[2017-03-03] MEDS: NYSTATIN POWDER 15GM BTTL TOP SCH ×2 (09:43→14:32)
[2017-03-03] MEDS: CEFUROXIME AXETIL TAB 250 MG TAB PO SCH (11:05)
[2017-03-03 16:21] VITALS: BP 128/72
--- NOTE | 2017-03-03 18:33 | DS ---
SUPERVISING PHYSICIAN: Pantera Pizano M.D. DISCHARGE DIAGNOSIS: 1. Acute anemia with a microcytic hypochromic presentation. Hemoglobin initially was 6.5 and after receiving 2 units of packed red blood cells was 10.1. 2. Chest pain with an elevated troponin of 3.74 without any EKG changes most likely related to her chronic renal failure but cannot rule out a non-ST segment elevation myocardial infarction. 3. Diabetes mellitus type 2 on sliding scale. 4. Hypertension. 5. Chronic renal failure with a baseline creatinine of 1.7 presently on end stage hospice care for chronic renal failure. 6. Chronic scoliosis. 7. Gastroesophageal reflux disease. 8. Congestive heart failure with no specific etiology and a BNP on admission of 532. 9. Chronic dementia. HISTORY OF PRESENT ILLNESS: This is an 87 year-old female patient who is living at [facility]. She came to the Emergency Room initially due to worsening weakness and associated shortness of breath that had worsened over 2 weeks. She had been on [facility] care due to chronic end stage renal failure. She has been significantly disabled with associated dementia. She also has had some increasing edema. She was quite anemic in the Emergency Room and had a hemoglobin of 6.5. Her chronic renal failure persisted with a BUN of 47 and and 2.36. The patient received 2 units of packed red blood cells very slowly. Prior to admission, the family rescinded hospice and the patient became a full code. HOSPITAL COURSE: Her condition stabilized and on the evening prior to discharge she had some acute onset of chest pain that was rated a 10/10 per the patient. She received some Nitroglycerin. The Nitroglycerin relieved her chest pain. Her troponin came back at 3.74 and after a long discussion with the family, the patient was again placed as a DNR. Her vital signs were stable during the entire episode. She was also given a Nitroglycerin patch. Her vital signs have been stable. Her labs have been stable. The patient will be discharged to [facility] today. DISCHARGE PLAN: The patient will be discharged to [facility] today. She will also be under the care of [facility]. Her diagnosis is end stage renal disease. She will be discharged with her medications that she came on admission plus a Nitroglycerin patch. [facility] has been contacted and they will followup care at [facility]. DISCHARGE MEDICATIONS: 1. Fentanyl patch. 2. Oxybutynin. 3. Omeprazole. 4. Clayton-3 fatty acids. 5. Metoprolol. 6. Magnesium oxide. 7. Gabapentin. 8. Furosemide. 9. Citalopram. 10. Calcium carbonate. 11. Zofran. 12. Hydrocodone. 13. Docusate sodium. 14. Acetaminophen. 15. Tessalon Perles. 16. Nystatin powder. 17. Morphine sulfate. 18. Melatonin. 19. Lorazepam. 20. Regular insulin. 21. Ferrous sulfate. 22. Nitroglycerin patch. 23. Carboxymethylcellulose E sodium. [facility][id number] [facility]
[2017-03-03] MEDS ORDERED: NITROGLYCERIN 0.2 MG/HR PATCH TD SCH (21:00)
[2017-03-04] MEDS ORDERED: fentaNYL PATCH 50 MCG/HR 1 EA PATCH TOP SCH (21:00)
== END 2017-03-03 15:15 ==
LOC: ER 16:49 → MS 19:38
PROVIDERS: ADMIT Emergency Medicine; ATTEND Nurse Practitioner Acute Care
DX: D50.9 Iron deficiency anemia, unspecified (principal); R07.89 Other chest pain; R79.89 Other specified abnormal findings of blood chemistry; I13.2 Hypertensive heart and chronic kidney disease with heart failure and with stage 5 chronic kidney disease, or end stage renal disease; E11.22 Type 2 diabetes mellitus with diabetic chronic kidney disease; N18.6 End stage renal disease; I50.9 Heart failure, unspecified; Z99.2 Dependence on renal dialysis; M41.80 Other forms of scoliosis, site unspecified; K21.0 Gastro-esophageal reflux disease with esophagitis; F03.90 Unspecified dementia, unspecified severity, without behavioral disturbance, psychotic disturbance, mood disturbance, and anxiety; I48.0 Paroxysmal atrial fibrillation; F32.9 Major depressive disorder, single episode, unspecified; Z66 Do not resuscitate; Z79.4 Long term (current) use of insulin; Z79.891 Long term (current) use of opiate analgesic; Z79.899 Other long term (current) drug therapy; Z88.0 Allergy status to penicillin; Z88.2 Allergy status to sulfonamides; Z88.6 Allergy status to analgesic agent; Z88.8 Allergy status to other drugs, medicaments and biological substances; Z82.49 Family history of ischemic heart disease and other diseases of the circulatory system
CPT/HCPCS: 36415 ×2; 36416 ×7; 71010; 80048 ×2; 80053; 81001; 82550 ×2; 82553 ×2; 82948 ×7; 83540; 83550; 83735 ×2; 83880; 84484 ×2; 85025 ×3; 86850; 86900; 86901; 86922; 87040 ×2; 87086; 87088; 87186; 87502; 93005 ×3; 94640 ×7; 94667; 94668 ×2; 94760 ×5; 96372 ×3; 96374; 96376; 99284; J1650 ×3; J1815; J2060 ×2; J7040; J7512; J7614 ×6; J7620; P9016 ×2; Q0163